=== PATIENT | male | born 1970 | race African-American/Black ===

== ENCOUNTER 2018-03-23 19:18 | Emergency (ER) | payer OTHER ==
[~2018-03-23] VITALS: Ht 190.5 cm; Wt 99.8 kg
[~2018-03-23 19:18] MED LIST: ACYCLOVIR 200200 MG PO; VALTREX1000 MG PO
[2018-03-23] MEDS ORDERED: NAPROSYN500 MG PO (19:34)
[2018-03-23] MEDS ORDERED: CORTISPORIN OTI10 M2 OTIC (19:34)
[2018-03-23] MEDS ORDERED: HYPERTENSION MED (19:41)
[2018-03-23 19:49] VITALS: BP 134/93
== END 2018-03-23 19:50 | disposition home or self-care (01) ==
LOC: ER 19:18
DX: H60.91 Unspecified otitis externa, right ear (principal); F17.210 Nicotine dependence, cigarettes, uncomplicated; I10 Essential (primary) hypertension; Z90.89 Acquired absence of other organs

== ENCOUNTER 2019-02-14 09:41 | Emergency (ER) | payer OTHER ==
[~2019-02-14] VITALS: Ht 190.5 cm; Wt 104.3 kg
[~2019-02-14 09:41] MED LIST changes: +CORTISPORIN OTI10 M2 OTIC; +HYPERTENSION MED; +NAPROSYN500 MG PO
[2019-02-14 09:43] VITALS: BP 125/80
[2019-02-14] MEDS ORDERED: AMOXICILLIN 50500 MG PO (10:03)
[2019-02-14] MEDS ORDERED: CIPRO HC OTIC S10 ML OTIC (10:05)
[2019-02-14] MEDS ORDERED: ULTRAM 50MG TAB50 MG PO (10:05)
[2019-02-14] MEDS ORDERED: MUPIROCIN15 GM TOP (10:05)
== END 2019-02-14 10:21 | disposition home or self-care (01) ==
LOC: ER 09:41
DX: H60.92 Unspecified otitis externa, left ear (principal); L01.00 Impetigo, unspecified; F17.210 Nicotine dependence, cigarettes, uncomplicated; I10 Essential (primary) hypertension; Z90.49 Acquired absence of other specified parts of digestive tract

== ENCOUNTER 2019-10-06 13:44 | Emergency (ER) | payer OTHER ==
[~2019-10-06] VITALS: Ht 188 cm; Wt 79.4 kg
[~2019-10-06 13:44] MED LIST changes: +AMOXICILLIN 50500 MG PO; +CIPRO HC OTIC S10 ML OTIC; +MUPIROCIN15 GM TOP; +ULTRAM 50MG TAB50 MG PO
[2019-10-06 16:09] LABS: URINE BILIRUBIN NEGATIVE (Negative); URINE BLOOD TRACE (Negative); URINE CLARITY CLEAR; URINE COLOR YELLOW; URINE GLUCOSE-RANDOM* NEGATIVE (Negative); URINE KETONES NEGATIVE (Negative); URINE LEUKOCYTES-REFLEX NEGATIVE (Negative); URINE NITRITE-REFLEX NEGATIVE (Negative); URINE PROTEIN (DIPSTICK) NEGATIVE (Negative); URINE UROBILINOGEN 0.2 E.U./dl (0.2-1.0)
[2019-10-06 16:38] LABS: HEMATOCRIT 41.6 % (42.0-52.0); HEMOGLOBIN 14.1 gm/dL (14.0-18.0); MCHC 33.9 g/dL (28.0-37.0); MCV 91.3 fL (80.0-100.0); PLATELET COUNT 303 thou/uL (150-400); RBC 4.56 mil/uL (4.50-6.00); RDW 13.5 % (10.5-14.5); WBC 3.3 thou/uL (4.0-11.0)
[2019-10-06 16:50] LABS: ANION GAP 9 mmol/L (7-16); BUN 13 mg/dL (7-18); CHLORIDE 109 mmol/L (98-107); CO2 25 mmol/L (21-32); CREATININE 1.4 mg/dL (0.7-1.3); GLUCOSE 69 mg/dL (74-106); SODIUM 143 mmol/L (136-145); TROPONIN-I <0.06 ng/mL (<0.06)
[2019-10-06 17:08] LABS: CALCIUM 9.4 mg/dL (8.5-10.1)
[2019-10-06 17:12] LABS: ABSOLUTE NEUTROPHILS 1.5 thou/uL (1.4-8.2)
[2019-10-06 17:13] LABS: ANISOCYTOSIS 1+
[2019-10-06 17:33] VITALS: BP 128/86
--- NOTE | 2019-10-07 07:56 | EKG ---
[address] [address] ELECTROCARDIOGRAM REPORT Name: EDITH YOUSSEF Room #: DEP [facility] [id number] Admission: 10/06/19 Attend Phys: Discharge: 10/06/19 Date of : 72 Report #: [id number] THIS REPORT FOR: //name// [facility] ED Test Date: 2019-10-06 Test Time: 15:33:45 Pat Name: EDITH YOUSSEF Department: Room: Gender: Campaign Advisor: [facility] : 1970 Requested By: Adolph Ch Order Number: [id number] MD: Dirk Hanley Measurements Intervals [place] Rate: 42 P: -75 AL: 206 QRS: 47 QRSD: 77 T: 59 QT: 442 QTc: 370 Interpretive Statements Sinus or ectopic atrial bradycardia No previous ECG available for comparison Electronically Signed On 10-07-2019 7:55:52 PRESSURE SUPERVISOR by Dirk Hanley [email or web address] <ELECTRONICALLY SIGNED> By: Dirk Hanley MD, [facility] 10/07/19 0755 [id number] Dirk Hanley MD, FACC /EPI
== END 2019-10-06 17:41 | disposition home or self-care (01) ==
LOC: ER 13:44
PROVIDERS: Emergency Medicine
DX: G89.29 Other chronic pain (principal); M54.5 Low back pain; F17.210 Nicotine dependence, cigarettes, uncomplicated; I10 Essential (primary) hypertension; Z98.890 Other specified postprocedural states

== ENCOUNTER 2019-12-06 18:17 | Inpatient (IN) | payer OTHER ==
[~2019-12-06] VITALS: Ht 193 cm; Wt 79.2 kg
[2019-12-06 18:19] VITALS: BP 110/88
[2019-12-06 23:49] LABS: HEMATOCRIT 43.7 % (42.0-52.0); HEMOGLOBIN 14.7 gm/dL (14.0-18.0); MCH 30.7 pg (26.0-34.0); MCHC 33.7 g/dL (28.0-37.0); PLATELET COUNT 311 thou/uL (150-400); RDW 13.5 % (10.5-14.5); WBC 6.3 thou/uL (4.0-11.0)
[2019-12-07] VITALS (7 sets, daily range): BP systolic 117–141; BP diastolic 74–91
[2019-12-07 00:27] LABS: CALCIUM 9.5 mg/dL (8.5-10.1); CREATININE 1.1 mg/dL (0.7-1.3); POTASSIUM 4.2 mmol/L (3.5-5.1)
[2019-12-07 01:03] LABS: ABSOLUTE NEUTROPHILS 3.5 thou/uL (1.4-8.2); PLATELET ESTIMATE NORMAL
--- NOTE | 2019-12-07 04:16 | NUR ---
PT TO UNIT AROUND 0115. ADMISSION ASSESSMENT COMPLETED WITH BETSY'S HELP. PT A&O TO PERSON AND TIME, VERY CONFUSED AND TALKING NONSENSE. ORIENTED PT TO NURSE, UNIT AND USE OF CALL LIGHT. GIVEN ONE TIME ATIVAN FOR NERVOUSNESS. PT POSSIBLE HIV AND SYPHILIS POSITIVE, GENARO REQUESTS DOOR TO BE CLOSED WHEN DISCUSSING THOSE MATTERS. FALL PRECAUTIONS IN PLACE DUE TO CONFUSION. REQUESTED A SANDWICH BUT FELL ASLEEP BEFORE IT COULD BE EATEN. GENARO (MARY BETH) LEFT FOR NIGHT BUT WILL BE BACK TOMORROW. PT SLEEPING NOW WITH CALL LIGHT IN REACH.
[2019-12-07 07:20] LABS: CALCIUM 9.3 mg/dL (8.5-10.1); CREATININE 1.1 mg/dL (0.7-1.3); POTASSIUM 3.7 mmol/L (3.5-5.1)
--- NOTE | 2019-12-07 14:14 | NUR ---
PT ADMITTED RELATED TO ENCEPHALOPATHY, POSITIVE HIV SCREENING TEST. CM REVIEWED CHART AND SPOKE WITH CARE TEAM. CM MET WITH PT AND GENARO CLINTON AT BEDSIDE THIS DAY. CM ROLE INTRODUCED. MARY BETH INDICTED SHE IS DPOA AND THAT THERE IS PAPERWORK ON THE CHART. SHE INDICATED THAT PT HAD BEEN LIVING IN A HOUSE WITH HER WITH NO STEPS TO ENTER AND NO STEPS INSIDE. SHE INIDCATED PT HAD BEEN INDEPENDENT WITH GAIT AND [facility] [employer]. SHE INDICATED THAT PT HAD BEEN AT [employer] [facility] AND THAT THEY HAD COMPLETED A MEDICAID APPLICATION AND [facility]AF SPOKEN ABOUT APPLYING FOR DISCABILITY. CM INDICATED THAT [facility] CAN CHECK STATUS OF APPLICAITON. CM TO FOLLOW INDICATED WITH NEEDS UPON DC.
--- NOTE | 2019-12-07 18:32 | EEG ---
[facility] [place] [address] ELECTROENCEPHALOGRAM Name: EDITH YOUSSEF Room #: 435-P ADM IN M.R.#: [id number] Admission: 12/06/19 Attend Phys: Jimmy Hughes MD Discharge: Date of : 72 Report #: [id number] THIS REPORT FOR: //name// CC: Jimmy Hughes [facility] unknown DATE OF SERVICE: 12/07/2019 This patient is being evaluated for altered mental status. The EEG was done by placing the electrodes by standard 10-20 system of electrode placement. Both referential and sequential montages were used for recording. Background activity in this patient's EEG is up to 9 Hz and 30 microvolts. Most of the EEG is intermixed with theta range slowing on both sides. Photic stimulation is unremarkable. No active epileptiform activity was noticed during this record. IMPRESSION: This patient's EEG is intermixed with theta range slowing on both sides. That is a nonspecific finding, which can occur with encephalopathy, effect of psychotropic medication, dementia, etc. Clinical correlation is recommended. <ELECTRONICALLY SIGNED> By: Randal Edwards MD 12/07/191831 01 12 Randal Edwards MD /nt
--- NOTE | 2019-12-07 19:55 | NUR ---
PT A&O TO SELF. CONFUSED. REQUIRED SEVERAL REORIENTAION THROUGHOUT THE DAY. S/O WAS THE BEDSIDE MOST OF THE DAY. IV INTACT IN L AC INFUSING FLUIDS W/O COMPS.CALL LIGHT W/I REACH BED ALARM ON.
--- NOTE | 2019-12-08 03:52 | NUR ---
ASSESSMENT: PT REMAIN ALERT AND ORIENT TIMES THREE, WITH BOUTS OF CONFUSION TO PLACE, TIME AND SITUATION. TAKES LOTS OF ENCOURAGEMENT. DOES TRY TO MASK HIS SYMPTOMS OF CONFUSION WITH LAUGHTER AND LIGHT HEARTED JOKES. DID NOT KNOW THE NAME OF THE HOSPITAL, THE NEXT HOLIDAY TO CELEBRATE, NOR COULD HE REMEMBER HIS RN'S NAME. S/O AT THE BEDSIDE DURING THE NIGHT. VSS, STABLE. C/O GENERALIZE PAIN AT 0355, TYLENOL GIVEN. PT DID NOT SLEEP MUCH DURING THE NIGHT. VSS, AFEBRILE. BED ALARM SET. PT REORIENT TO TIME, SITUATION AND PLACE. PT DID KNOW HIS NAME, AND HOME ADDRESS. SLOW PROGRESS TOWARDS DCF GOALS, WILL CONTINUE TO MONITOR.
[2019-12-08 04:10] VITALS: BP 137/75
--- NOTE | 2019-12-08 10:00 | NUR ---
pt confused, impulsive, calling 911, security here trying to educate on not calling 911. information to bedside nurse. here pt trying to get dressed and thinks he going some where. will cont following as needed for dc needs. sig other # [phone] [facility]. and bedside nurse still in room with pt
[2019-12-08 10:07] VITALS: BP 125/77
--- NOTE | 2019-12-08 10:38 | NUR ---
PT CARE ASSUMED AT 0700. A&Ox4 WITH PARTIAL CONFUSION. PT KEEPS CALLING HIS GIRLFRIEND AT WORK AND WANTS TO LEAVE. HE CALLED 911 AND TOLD THEM THAT WE ARE HOLDING HIM AGAINST HIS WILL. SECURITY WAS CALLED TO STAY WITH PT UNTIL EDATION ORDERED. DR. MARRERO HAS ORDERED A ONE TIME HALDOL DOSE WITH VERBAL ORDERS TO USE WRIST RESTRAINS IF NEEDED AND SITTER IF NEEDED PER RN JUDGEMENT CALL. THERE IS A MISS. NOTE THAT THE GIRLFRIEND CANNOT AMA THE PT DUE TO PT BEING A HARM TO HIMSELF. PT RESULTS ARE PENDING FOR TURSHEAR SYPHILIS OR DEMENTIA CORRELATING TO HIS PENDING HIV DIAGNOSIS.
[2019-12-08 15:34] VITALS: BP 128/84
[2019-12-08 19:10] VITALS: BP 126/85
[2019-12-08 19:11] LABS: ANA INTERPRETATION Negative (())
--- NOTE | 2019-12-08 22:35 | HC ---
[facility] [place] [address] CONSULTATION Name: EDITH YOUSSEF Room #: 435-P ADM IN M.R.#: [id number] Admission: 12/06/19 Attend Phys: Ramesh Bingham MD Discharge: Date of : 72 Report #: [id number] THIS REPORT FOR: cc: [facility] - Clinic physician unknown [facility] - Clinic physician unknown Jonathan Baptiste MD ~ CC: Jimmy Hughes [facility] unknown DATE OF SERVICE: 12/07/2019 INFECTIOUS DISEASE CONSULTATION REASON FOR CONSULTATION: I was asked to evaluate concerning suspected HIV encephalopathy. HISTORY OF PRESENT ILLNESS: A 49-year-old who was recently hospitalized at [facility] on 11/30/2019 with a 4-week history of progressive neurologic decline. While there, the initial workup was started. The patient and his fiancee left A and presented themselves to the Emergency Room at [facility]. I am still unclear as to the reason that they left the hospital. The patient has been incarcerated multiple times in his life for extended periods. He has a significant other of approximately 15 years. During his hospital stay at [facility], he was diagnosed with HIV serologic positive without confirmation yet. Also, had syphilis antibody positive without positive RPR. He had brain imaging showing extensive demyelinating type lesions on MRI scan. A spinal tap was unremarkable. He did have mild elevation in the protein of 56. Further workup was yet pending. There was evidence for PCR with negative enterovirus, HSV, CMV, VZV, and HPV. I did not see evidence of Candice-Ibarra virus or JIM virus. The patient was unable to give any further details. Discussion with his significant other states that he was then presented in August and upon release, was acting normally. Very active. Works in a warehouse. Over the last month, he has been more lethargic. He has had poor appetite. More confusion and anxiety. Culture frequently during the day, which is unusual for him. He does drink significant amount of alcohol. He reports no intravenous drug use. Does smoke marijuana. Unclear, if he is bisexual. No tuberculosis history or recent travel history. Did grow up in [place] and [facility]. ALLERGIES: None known. MEDICATIONS: As noted on his MAR. [facility] [address] [place] [address] CONSULTATION Name: EDITH YOUSSEF Room #: 435-P [facility] IN [facility].#: [id number] Admission: 12/06/19 Attend Phys: Ramesh Bingham MD Discharge: Date of : 72 Report #: [id number] PAST MEDICAL HISTORY: Depression, alcohol abuse, hypertension, herniorrhaphy, appendectomy, was report of an enlarged heart. FAMILY HISTORY: Dementia in his brother and his early 50s. SOCIAL HISTORY: As noted above. Does smoke cigarettes. REVIEW OF SYSTEMS: A 14-point review was negative other than what has been described above. Most notably, no headache or visual changes. He has had no movement disorder noted. PHYSICAL EXAMINATION: VITAL SIGNS: He is afebrile and hemodynamically stable. He was ambulatory. He was a bit lethargic. He just tells me they wanted to go to sleep. He was able to follow commands and cooperate with the examination. SKIN: With multiple tattoos. Had a fine erythematous rash to his scalp and face. No palpable adenopathy. HEENT: Eyes, without scleral icterus. Pupils are equal, round, and reactive to light and accommodation. Mouth without mucositis. NECK: Supple. No thyromegaly or mass. LUNGS: Clear to auscultation. HEART: Regular, without murmur, gallop, or rub. ABDOMEN: Soft and nontender with no hepatosplenomegaly or mass. GENITOURINARY: External genitalia without lesion or mass. RECTAL: Not performed. EXTREMITIES: Without clubbing, cyanosis, or edema. Cranial nerves were intact. NEUROLOGIC: Otherwise, nonfocal. PSYCHIATRIC: Mood was depressed. LABORATORY STUDIES: Reviewed. MRI scan reviewed noting nonspecific confluent periventricular and subcortical white matter hyperintensities. IMPRESSION: A 49-year-old with acute encephalopathy less than 4 weeks of duration in the setting of positive HIV serology and diffuse changes on MRI scan. He has had partial workup at [facility]. The patient left with his ana AMA from that institution and presented to the Emergency Room at [facility]. I highly suspect his HIV is a true positive, but will need to have this confirmed. He does have evidence of syphilis, although his RPR was negative. He would be concerned about PML versus HIV encephalopathy versus acute demyelinating process of postinfectious nature. MS SLE toxoplasma lymphoma seems less likely. RECOMMENDATIONS: We will obtain reports from [facility] to confirm their workup. Repeat CSF examination for JIM virus, Candice-Ibarra virus, PCR and await the studies for syphilis. Obtain CD4 count and confirm his HIV status. If no improvement or diagnosis established with current workup, may need to [facility] [address] [place] [address] CONSULTATION Name: EDITH YOUSSEF Room #: 481-P ADM IN [facility].#: [id number] Admission: 12/06/19 Attend Phys: Ramesh Bingham MD Discharge: Date of : 72 Report #: [id number] pursue a brain biopsy. We will hold off on this at this point until further information. Case was discussed with his fiancee at the bedside. <ELECTRONICALLY SIGNED> By: Jonathan Baptiste MD 12/08/19 2235 [id number] [id number] Jonathan Baptiste MD /nt
--- NOTE | 2019-12-09 02:47 | NUR ---
ASSUMED CARE FROM DAY SHIFT PT IV HALF OUT OF ARM AND LEAKING , NEW IV PLACED IP LEFT UPPER ARM , PT CONFUSED TO SITUATION, GIRLFREIND AT BEDSIDE ASSITING PT. ASSESSMENT COMPLETED, IV FLUIDS INFUSING WELL. PT RESTLESS, CALL PLACED TO BG SUPERVISOR OF INSTRUCTION ORDER RECIEVED FOR HADOL IV TIMES ONE. PT LESS RESTLESS BUT REMAINS AWAKE AND CONFUSED. BED ALARM ON FOR SAFETY.
[2019-12-09 08:07] VITALS: BP 141/99
[2019-12-09 11:42] LABS: HEMATOCRIT 38.8 % (42.0-52.0); HEMOGLOBIN 13.1 gm/dL (14.0-18.0); MCH 30.5 pg (26.0-34.0); MCHC 33.7 g/dL (28.0-37.0); MCV 90.4 fL (80.0-100.0); RBC 4.29 mil/uL (4.50-6.00); RDW 13.1 % (10.5-14.5); WBC 4.5 thou/uL (4.0-11.0)
[2019-12-09 11:45] LABS: INR 1.1; PROTIME 11.5 Seconds (9.3-11.4)
[2019-12-09 14:36] LABS: CSF RBC 1587 /mm3
[2019-12-09 14:37] LABS: CSF CLARITY HAZY; CSF COLOR LIGHT PINK; CSF GLUCOSE 59 mg/dL (40-70); CSF PROTEIN 70 mg/dL (15-45); VOLUME 13 ml
[2019-12-09 15:25] LABS: CSF EOSINOPHILS 0 %; CSF LYMPHOCYTES 69 %; CSF POLYS 3 %
[2019-12-09 15:28] LABS: CSF WBC 18 /mm3 (0-10)
[2019-12-09 16:10] VITALS: BP 120/77
[2019-12-09 17:10] LABS: ANTI-VCA/IgM <36.0 U/mL (0.0-35.9)
[2019-12-09 19:15] VITALS: BP 125/82
--- NOTE | 2019-12-09 20:14 | NUR ---
PT CARE ASSUMED AT 0700. A&Ox1 TO SELF. PT HAD A LUMBAR PUNTURE TODAY AND IS RESTING IN HIS ROOM. HE HAS STATED HE HAS A SLIGHT HEADACHE. THE HAS BEEN UPDATED OVER THE PHONE AND IN PERSON. GAVE PT A SHOWER. PT URINATED ONCE ON THE FLOOR TODAY THE REST OF THE DAY HE USED THE URINAL. WRIST RESTRAINTS AND SITTER CAN BE INITIATED PER RN DISCRETION PER DR. MARRERO VERBAL ORDERS. HALDOL IM PRN ON BOARD. PT HAS A R. WRIST IN PLACE THAT IS PATENT WITH NO REDNESS OR EDEMA. FALL PROTOCOLL IN PLACE. CALL LIGHT IN REACH. PT IS A DAILY WEIGHT DUE TO HIS EXTREME WEIGHT LOSS OVER THE LAST TWO MONTHS. PT HAS FLUIDS INFUSING.
--- NOTE | 2019-12-09 22:22 | NUR ---
1909 ASSUM,ED CARE OF PT AFTER BEDSIDE REPORT FAMILY AT BEDSIDE WITH PT NO COMPLAINTS AT THIS TIME 2199 ASSESSMENT COMPLETED, SEE ASSESSMENT, PT RESTING IN BED ORIENTED TO PERSON AND PLACE ONLY, APPEARS ANXIOUS, IV PATENT, AND FALL PRECAUTIONS IN PLACE, WILL CONTINUE WITH HOURLY ROUNDING
[2019-12-10 03:09] LABS: SYPHILIS AB Reactive (Non Reactive)
[2019-12-10 03:15] VITALS: BP 147/83
[2019-12-10 09:11] VITALS: BP 145/74
--- NOTE | 2019-12-10 17:42 | NUR ---
PATIENT HAS STAYED IN ROOM MOST OF THE DAY. HE IS ALERT ORIENTED TO SELF. HE HAS BEEN NOTED AT TIMES TO BE IMPULSIVE AND REFUSES TO FOLLWO SIMPLE INSTRUCTION. REFUSED IV NS THIS PM STATING HE DOES NOT IT. DIFFICULT TO REDIRECT. HE IS ALERT ORIENTED TO SELF. FIANCE HERE TO GIVE HIM A SHOWER. HE IS NOW SITTING ON THE SIDE OF THE BED AND REFUSES TO LIE DOWN. WILL CONT WITH PLAN OF CARE.
[2019-12-10 18:45] VITALS: BP 132/74
--- NOTE | 2019-12-10 20:12 | NUR ---
1900 ASSUMED CARE OF PT AFTER BEDSIDE REPORT. 1999 ASSESSMENT COMPLETED, PT REFUSING VITALS AND SCDS AT THIS TIME, FALL PRECAUTIONS IN PLACE, PT APPEARS LESS ANXIOUS THAN PREVIOUS SHIFT, AND IS OTHERWISE COOPERATIVE, PT ORIENTED TO PERSON ONLY, WILL CONTINUE WITH HOURLY ROUNDING.
[2019-12-11 05:30] VITALS: BP 154/103
[2019-12-11 08:00] VITALS: BP 132/84
--- NOTE | 2019-12-11 15:18 | NUR ---
PATIENT HAS BEEN CALM THROUGH THE DAY. NOW SLEEPING. RESPIRATIONS ARE NON LABORED. PLEASANT WITH CARE. CONFUSED HOWEVER. ALERT ONLY TO SELF. DID COMPLAIN PAIN. IV TO RIGHT HAND REMAINS PATENT. DISCUSSED DISEASE PROCESS WITH FIANCE AND PATIENT AND ANSWERED QUESTIONS. WILL CONT WITH PLAN OF CARE.
[2019-12-11 17:04] VITALS: BP 124/82
[2019-12-11 20:14] VITALS: BP 134/88
[2019-12-12 00:09] LABS: CD3 % 65.9 % (57.5-86.2); CD4 % 4.2 % (30.8-58.5); CD4:CD8 0.07 (0.92-3.72); CD8 % 62.1 % (12.0-35.5)
--- NOTE | 2019-12-12 02:15 | NUR ---
PT SITTING UP IN BED AT START OF SHIFT.PT'S IV ON HIS R HAND INFILTRATED,NEW ONE OBTAINED ON HIS LFA BY IV TEAM.PT WAS NOT ABLE TO SWALLOW HIS MEDS AT HS,MEDS DISCARDED.PT WAS OBSERVED RETAINING SPUTUM IN HIS MOUTH AFTER COUGHING,SUCTION SET UP IN HIS ROOM TO ASSIST WITH THAT.PT HAS BEEN INCONT OF BLADDER A COUPLE OF TIMES THIS SHIFT,PERICARE DONE WITH EACH INCONT.PT ALERT WITH CONFUSION AND FORGETFULNESS.PT CONT ON IVF ORDERED.PT RESTING ON HIS BED AT THIS TIME.FALL PRECAUTIONS IN PLACE,CALL LIGHT WITHIN REACH.
[2019-12-12 03:20] VITALS: BP 143/94
[2019-12-12 07:40] VITALS: BP 129/87
[2019-12-12 16:30] VITALS: BP 146/96
--- NOTE | 2019-12-12 18:21 | NUR ---
PT ASSESSED AT START OF SHIFT. PT GIVEN SOME IV HALDOL DURING THE NOC AND HE IS SLEEPING RESTFULLY. SPEECH HERE THIS AM BUT PT NOT ABLE TO COOPERATE ENOUGH W/ SWALLOW EVAL. HE DOES HAVE CONJESTED LOOSE COUGH AND USING YANQUER NEEDED. PT HAS BEEN AWAKE OFF AND ON AND VERY CALM. NOT SAFE TO GIVEN ORAL MED OR FOOD. DR. MARRERO NOTIFIED. SIG OTHER UPDATED W/ PT CONDITION AND SHE WILL COME OVER AFTER WORK.
[2019-12-12 20:40] VITALS: BP 138/89
--- NOTE | 2019-12-13 03:14 | NUR ---
PT WITH A LOOSE COUGH,ASSISTED WITH SUCTIONING NEEDED.HS MEDS NOT GIVEN DUE TO PT AT RISK FOR ASPIRATION.HOB ELEVATED WHILE PT IN BED.PT INCONT OF URINE,PERICARE DONE WITH EACH INCONTINENCE.PT ABLE TO MOVE SELF WHILE IN BED.PT NEEDS CONSTANT REMINDER TO USE CALL LIGHT FOR ASSISTANCE.PT CONT ON IVF AND IV ABX ORDERED.PT RESTING ON HIS BED AT THIS TIME.FALL PRECAUTIONS IN PLACE,CALL LIGHT WITHIN REACH.
[2019-12-13 07:38] VITALS: BP 144/91
--- NOTE | 2019-12-13 14:44 | NUR ---
PT SEEN BY ST AND THEY PUT PT ON A MECHSFT DIET WITH NECTAR THICK LIQUID. CARE TEAM INDICATING THAT PT WILL LIKELY NEED SOME SORT OF POST ACUTE CARE STAY UPON DC. PT IS MEDCIAID PENDING. CM TO FOLLOW INDICATED WITH DC PLANNING.
--- NOTE | 2019-12-13 15:08 | PATH ---
[facility] [address] [place] [address] PATHOLOGY RPT PROCEDURE Name: EDITH YOUSSEF Room #: 435-P ADM IN M.R.#: [id number] Admission: 12/06/19 Date of : 72 Discharge: Report #: [id number] Path Case #: [id number] Note [facility] Accession Number: [id number] TESTS RESULT FLAG UNITS REF RANGE LAB Clinician Provided Cytology Information No. of containers..01 Other (Miscellaneous) Source: CSF DIAGNOSIS: CSF NEGATIVE FOR MALIGNANT CELLS. LYMPHOCYTES AND RARE MACROPHAGES PRESENT. NO VIRAL INCLUSIONS OR PARASITIC ORGANISMS PRESENT. Pathologist ICD10: 02 G93.40 Signed out by: Rashmi Gutierrez MD, Pathologist NPI- [id number] Performed by: Bianca Degroot, Contract Engineer ([facility]) Gross description: 01 2ML, PALE PINK, 1 TP /LCS 12/12/2019 1234 Local FLAG LEGEND: L-Low Normal,H-High Normal,LL-Alert Low,HH-Alert High <-Panic Low,>-Panic High,A-Abnormal,AA-Critical Abnormal Performed at: [address] [place] [address] Leonides Ayers MD, [address] [address] Rashmi Gutierrez MD, Specimen Comment: A courtesy copy of this report has been sent to [phone] Specimen Comment: Report sent to Performed at: [address], [place], [place] [id number] MD Leonides Ayers MD Phone: [phone]
[2019-12-13 19:18] VITALS: BP 144/91
--- NOTE | 2019-12-13 19:20 | NUR ---
PT CARE ASSUMED AT 0700. A&Ox1 TO SELF. IV IS PATENT WITH NO REDNESS OR EDEMA. FLUIDS INFUSING ANTIBIOTICS GIVEN. TAKES MEDS CRUSHED WITH PUDDING. NECKTAR THICK FLUIDS. FALL RISK PROTOCOLL IN PLACE. AT BED SIDE. HAS GIVEN PT HIS SHOWER. DISCONNECTED PT FROM IV WHILE IT WAS INFUSING WITH HIS ANTIBIOTICS AND CALLED OUT AFTER ABOUT 50CC OF HIS HAD DRIPPED ALL OVER THE FLOOR. CALL LIGHT IN REACH.
[2019-12-13 19:35] VITALS: BP 138/82
[2019-12-14] VITALS (7 sets, daily range): BP systolic 131–145; BP diastolic 56–99
--- NOTE | 2019-12-14 00:53 | NUR ---
PT'S SIG OTHER HERE AT HIS BEDSIDE FEEDING HIM AT THE START OF SHIFT.SIG OTHER STATED THAT SHE GAVE HIM A SHOWER.PT ALERT TO SELF,CONFUSED AND FORGETFUL.PT CONT ON IVF AND IV ABX ORDERED.PT ON SWALLOW PRECAUTION.INCONT OF URINE,PERICARE WITH EACH INCONT.PT RESTING ON HIS BED AT THIS TIME.FALL PRECAUTIONS IN PLACE,CALL LIGHT WITHIN REACH.
[2019-12-14 11:54] LABS: BASOPHILS 0.2 % (0.0-2.0); EOSINOPHILS 1.2 % (0.0-3.0); HEMATOCRIT 38.9 % (42.0-52.0); HEMOGLOBIN 13.3 gm/dL (14.0-18.0); LYMPHOCYTES 9.6 % (24.0-44.0); MCH 30.7 pg (26.0-34.0); MCHC 34.1 g/dL (28.0-37.0); MCV 89.9 fL (80.0-100.0); MONOCYTES 11.8 % (1.0-8.0); PLATELET COUNT 379 thou/uL (150-400); POLYS 77.2 % (36.0-66.0); RBC 4.32 mil/uL (4.50-6.00); RDW 12.9 % (10.5-14.5); WBC 7.8 thou/uL (4.0-11.0)
[2019-12-14 12:34] LABS: ALBUMIN 3.2 g/dL (3.4-5.0); CALCIUM 9.7 mg/dL (8.5-10.1); CREATININE 0.8 mg/dL (0.7-1.3); MAGNESIUM 1.6 mg/dL (1.8-2.4); PHOSPHORUS 3.7 mg/dL (2.5-4.9); POTASSIUM 3.3 mmol/L (3.5-5.1); TOTAL BILIRUBIN 0.6 mg/dL (<0.1-1.0); TOTAL PROTEIN 8.4 g/dL (6.4-8.2)
[2019-12-14 13:10] LABS: CSF VDRL Non Reactive (Non Rea:<1:1)
[2019-12-14 16:15] LABS: HEMATOCRIT 38.6 % (42.0-52.0); HEMOGLOBIN 13.1 gm/dL (14.0-18.0); MCH 30.4 pg (26.0-34.0); MCHC 33.8 g/dL (28.0-37.0); MCV 89.9 fL (80.0-100.0); RBC 4.3 mil/uL (4.50-6.00); RDW 13.1 % (10.5-14.5); WBC 7.8 thou/uL (4.0-11.0)
[2019-12-14 16:29] LABS: CALCIUM 9.4 mg/dL (8.5-10.1); CREATININE 0.8 mg/dL (0.7-1.3); POTASSIUM 3.6 mmol/L (3.5-5.1)
[2019-12-14 16:33] LABS: ALBUMIN 3.1 g/dL (3.4-5.0); TOTAL BILIRUBIN 0.6 mg/dL (<0.1-1.0); TOTAL PROTEIN 8.3 g/dL (6.4-8.2)
[2019-12-14 16:33] LABS: BE(vivo) -2.9 mmol/L (-2 to +3); HCO3 19.8 mmol/L (22.0-26.0); PCO2 29.1 mmHg (35.0-45.0); PO2 79.2 mmHg (80.0-100.0); pH 7.451 (7.360-7.450); sO2 96.4 % (92.0-98.0)
--- NOTE | 2019-12-14 19:16 | NUR ---
ASSESSMENTS AND INTERVENTIONS DOCCUMENTED. PATIENT ARRIVED TO UNIT AT 1815. PATIENT SETTLED IN. PATIENT CONFUSED AND UNABLE TO FOLLOW COMMANDS. NIH STROKE SCALE INTITATED DUE TO RAPID DECREASED LOC. POC IS TO GO TO MRI THIS EVENING.
[2019-12-14 20:09] LABS: HIV-1 BY PCR 8928210 (())
[2019-12-15] VITALS (25 sets, daily range): BP systolic 122–141; BP diastolic 82–98
--- NOTE | 2019-12-15 00:10 | NUR ---
PICC PROCEDURE. PATIENT IS NOT ABLE TO UNDERSTAND. ,MEDICAL NECESSITY OBTAINED BY UNIT RN'S FROM DR. SULTANA. COMPUTER ORDER VERIFIED AND TIME OUT COMPLETED WITH PATIENT'S NURSE AND PATT RN. TRIPLE LUMEN PICC PLACED TO RUE BASILIC VEIN PER PICC PLACEMENT PROTOCOL. PATIENT TOLERATED WELL. NO COMPLICATIONS. PICC TRIMMED TO 41CM. EXTERNAL =0CM. PICC TIP CONFIRMED DISTAL SVC PER CHEST XRAY. PATIENT'S RN AND PATT RN NOTIFIED THAT PICC IS OKAY TO USE.
--- NOTE | 2019-12-15 07:24 | NUR ---
SEE RSVP Law FOR COMPLETE ASSESSMENT. PT ORIENTED TO SELF. CAN VERBALIZE BASIC CARE NEEDS. PT LETHARGIC, AWAKENS EASILY. DELAYED IN RESPONSES BOTH VERBALLY AND MOTOR SKILLS. DENIES ANY PAIN. IN CONVERSANT WHEN AWAKE, BUT CONFUSED, AND STREAM OF THOUGHTS. CT OF CHEST DONE,LS-COARSE. NO SOA, REMAINS ON RA. MONITOR SHOWS HR 40-50'S. ASYMPTOMATIC SBP 120-140'S RANGE. TEMP COOL. CONT PLAN OF CARE. CONT TOWARDS GOALS NEURO SEEMS UNCHANGED FROM BASELINE.
--- NOTE | 2019-12-15 07:30 | NUR ---
PATIENT TRANSFER TO ICU. WILL NEED NEW ORDERS WHEN MEDICALLY APPROPRIATE FOR OT.
--- NOTE | 2019-12-15 08:12 | NUR ---
Pt TRANSFERRED TO ICU. WILL PLACE ON HOLD AND AWAIT NEW ORDERS WHEN Pt IS ABLE TO PARTICIPATE WITH THERAPY
[2019-12-15 09:11] LABS: HEPATITIS C VIRUS AB 0.4 (0.0-0.9)
--- NOTE | 2019-12-15 15:36 | NUR ---
NEURO SEEN PT THIS AM. TAKEN DOWN FOR MRI OF HEAD WITH TRANSPORT. EEG DONE THIS AFTERNOON. PT IS CONFUSED. EYES ARE AFFECTED BY LIGHT. OPENS EYES WITH LIGHTS DIM. PUPILS 3 AND SLUGISH. ORAL CARE DONE AND HE SAID THAT IS ENOUGH WITH SPEECH. LUNGS ARE CLEAR TO DIMINISHED. ON ROOM AIR. SCDS BILATERAL. RIGHT UPPER ARM PICC LINE PATENT AND WORKING . WILL CONTINUE TO MONITOR AND ASSESS PER NURSING. PROGRESS TOWARDS GOALS
[2019-12-16] VITALS (24 sets, daily range): BP systolic 122–146; BP diastolic 73–97
--- NOTE | 2019-12-16 07:10 | NUR ---
ASSUME CARE 1900. PT/VITALS STABLE. DENIES ANY PAIN. MODERATELY TOLERATES ACTIVITY. ASSESSMENT CHARTED. PROGRESSING WELL WITH POC. PT IS AFIB ON MONITOR AND HR RUNS BETWEEN LOW 100s AND 140s BUT DOES NOT SUSTAIN. PT ON PT CARDIZEM 60MG. SWALLOWS WITH NO DIFFICULTY. ADEQUATE URINE OUTPUT NOTED. PLAN IS TO MANAGE AFIB AND HR. POSSIBILITY OF DISCHARGING TO A LESS CRITICAL UNIT (CCU) TODAY. WILL CONTINUE TO MONITOR AND FOLLOW WITH POC
--- NOTE | 2019-12-16 07:16 | NUR ---
ASSUME CARE 1900. PT/VITALS STABLE. PT IS A/O TO PERSON ONLY AND DOES NOT FOLLOW COMMANDS APPROPRIATELY. ASSESSMENT CHARTED. POOR PROGRESS TO POC. PLAN IS TO START PATIENT ON ANTIRETROVIRAL DRUGS AND CONTINUE WITH PCN Jo Ann Ni. NO DISTRESS NOTED THROUGH THE NIGHT. SLEEP OR THE MOST PART BUT WOULD AWAKE TP VERBAL STIMULI OR TOUCH. WILL CONTINUE TO MONITOR AND FOLLOW WITH POC
--- NOTE | 2019-12-16 09:12 | NUR ---
chart review, report from bedside nurse. pt in bed with eyes closed. letting pt rest. was passed on that jessika kevin to speak with infectious control MD (ID). cm tried calling herberth rosen, mail box was full and unable to leave message. not anticipated to dc over the weekend. will cont following as needed for dc needs.
[2019-12-16 11:21] LABS: ABSOLUTE NEUTROPHILS 9.9 thou/uL (1.4-8.2); BASOPHILS 0.2 % (0.0-2.0); EOSINOPHILS 0.2 % (0.0-3.0); HEMATOCRIT 40.3 % (42.0-52.0); HEMOGLOBIN 13.6 gm/dL (14.0-18.0); LYMPHOCYTES 7.4 % (24.0-44.0); MCH 30.1 pg (26.0-34.0); MCHC 33.7 g/dL (28.0-37.0); MCV 89.2 fL (80.0-100.0); MONOCYTES 9.5 % (1.0-8.0); PLATELET COUNT 435 thou/uL (150-400); POLYS 82.7 % (36.0-66.0); RBC 4.51 mil/uL (4.50-6.00); RDW 12.8 % (10.5-14.5); WBC 11.9 thou/uL (4.0-11.0)
[2019-12-16 11:36] LABS: ALBUMIN 2.8 g/dL (3.4-5.0); CALCIUM 9.1 mg/dL (8.5-10.1); CREATININE 0.8 mg/dL (0.7-1.3); POTASSIUM 3.6 mmol/L (3.5-5.1); TOTAL BILIRUBIN 0.6 mg/dL (<0.1-1.0); TOTAL PROTEIN 8.4 g/dL (6.4-8.2)
[2019-12-16 11:41] LABS: INR 1.2; PROTIME 12.7 Seconds (9.3-11.4)
[2019-12-16 11:49] LABS: MAGNESIUM 1.6 mg/dL (1.8-2.4)
--- NOTE | 2019-12-16 15:30 | NUR ---
PT IS AWAKE AT TIMES. BUT NON RESPONSIVE TO COMMANDS. LUNGS ARE CLEAR TO DIMINISHED. ON ROOM AIR OXYGEN SATURATION IS 97 PERCENT. BLOOD PRESSURE IS STABLE. STARTED TUBE FEEDING TODAY. INSERTED NG TUBE IN PLACE FOR FEEDING. ABDOMEN IS SOFT. EDOUARD CATHETER IN PLACE. SCDS IN PLACE. TURN Q2 HOURS. FOR NURSING CARE AT THIS TIME LABS DRAWN TODAY. WILL CONTINUE TO ASSESS AND MONITOR PER NURSING
[2019-12-17] VITALS (24 sets, daily range): BP systolic 119–142; BP diastolic 84–103
[2019-12-17 00:53] LABS: BE(vivo) -3.6 mmol/L (-2 to +3); HCO3 17.5 mmol/L (22.0-26.0); PO2 113.6 mmHg (80.0-100.0); pH 7.496 (7.360-7.450); sO2 98.5 % (92.0-98.0)
[2019-12-17 01:00] LABS: PCO2 23.2 mmHg (35.0-45.0)
--- NOTE | 2019-12-17 19:15 | NUR ---
Pt has dozed intermittently. Pt has purposeful movement but does not seem to follow comands/requests. Wrists restrained to prevent accidental removal of NG tube. Makes attempt to respond verbally but speech difficult to understand. Congested cough. Tolerating tube feedings started this morning. Significant other by today or visit. Continue to work toward plan of care. Report given to RN assuming care.
--- NOTE | 2019-12-17 20:52 | NUR ---
VASCULAR ACCESS TEAM CALLED TO ICU, CXR FROM EARLIER TODAY SHOWS PICC FLIPPED ACROSS MIDLINE. DRG REMOVED AND POWER FLUSHED ALL 3 PORTS. STAT CXR ORDERED, PICC NOW AT [facility]. PICC RELEASED FOR IMMEDIATE USE TO [facility] YOU[facility]BLOOD
--- NOTE | 2019-12-17 21:38 | NUR ---
PT AGITATED, HAVING FRUSTRATED CONVERSATIONS WITH PEOPLE NOT PHYSICALLY PRESENT IN THE ROOM. REASSURANCE AND REORIENTATION PROVIDED. PT REMAINS CONFUSED AND UNABLE TO UNDERSTAND WHAT NURSE IS TELLING HIM. PT CUSSING AND BECOMING MORE FRUSTRATED IN HIS CONVERSATIONS. PRN HALDOL GIVEN. WILL CONTINUE TO MONITOR. REMAINS IN BILATERAL SOFT WRIST RESTRAINTS FOR PULLING AT LINES.
[2019-12-18] VITALS (23 sets, daily range): BP systolic 127–147; BP diastolic 87–102
--- NOTE | 2019-12-18 03:56 | NUR ---
ASSUMED PT CARE AROUND 1900. ORIENTED TO SELF ONLY. PT IS VERY CONFUSED AND CAN BE RESTLESS AT TIMES. PT WAS MORE CALM AFTER HE WAS GIVEN HALDOL. PT WAS AWAKE MOST OF THE NIGHT, BUT IS RESTING QUIETLY AT THIS TIME. HE WAS REPOSITIONED TO PREVENT SKIN BREAKDOWN. REMAINS IN BILATERAL SOFT WRIST RESTRAINTS HE CAN BE IMPULSIVE AND TRIES TO PULL AT LINES AND NGT WHEN AWAKE. NGT WITH TF, RATE INCREASED SLOWLY ORDERED. MINIMAL RESIDUALS SO FAR THIS SHIFT. FALL PRECAUTIONS IN PLACE. PROGRESSING SLOWLY TOWARD POC GOALS. WILL CONTINUE TO MONITOR FURTHER.
[2019-12-18 05:34] LABS: HEMATOCRIT 39.7 % (42.0-52.0); HEMOGLOBIN 13.5 gm/dL (14.0-18.0); MCH 30.7 pg (26.0-34.0); MCV 90.4 fL (80.0-100.0); PLATELET COUNT 446 thou/uL (150-400); RBC 4.39 mil/uL (4.50-6.00); RDW 12.8 % (10.5-14.5); WBC 5.9 thou/uL (4.0-11.0)
[2019-12-18 05:57] LABS: CALCIUM 9.7 mg/dL (8.5-10.1); CREATININE 0.8 mg/dL (0.7-1.3); MAGNESIUM 1.8 mg/dL (1.8-2.4); PHOSPHORUS 3.7 mg/dL (2.5-4.9); POTASSIUM 3.7 mmol/L (3.5-5.1)
[2019-12-18 10:22] LABS: ABSOLUTE NEUTROPHILS 3.7 thou/uL (1.4-8.2); ANISOCYTOSIS SLIGHT
--- NOTE | 2019-12-18 13:59 | NUR ---
0700 report received see assessment. continuing with poc, updated s/o about restraints and poc all questions and concerns were answered by dr mcgarry. pt pulled ngt out accidentally while s/o here she released restraints. she was warned prior by nursing staff and dr mcgarry that pt needs to remaiin in all the time to prevent any injury or accidents. cxr ordered for placement. will continue to moniter.
--- NOTE | 2019-12-18 19:16 | NUR ---
1900 REPORTED OFF TO PM RN.
[2019-12-19] VITALS (24 sets, daily range): BP systolic 113–142; BP diastolic 81–101
--- NOTE | 2019-12-19 03:36 | NUR ---
ASSUMED CARE OF PATIENT AT 1900. VSS, AFEBRILE. VERY CONFUSED. UNABLE TO ANSWER ORIENTATION QUESTIONS. PULLING AT RESTRAINTS, ATTEMPING TO REMOVE NG TUBE. TUBE FEEDING RESUMED, TITRATED UP TOWARDS GOAL. TOLERATING WELL. ONE DOSE OF HALDOL GIVEN FOR EXTREME AGITATION. NOT PROGRESSING TOWARDS POC GOALS.
[2019-12-19 06:04] LABS: CALCIUM 9.7 mg/dL (8.5-10.1); CREATININE 0.7 mg/dL (0.7-1.3); MAGNESIUM 2.1 mg/dL (1.8-2.4); PHOSPHORUS 3.7 mg/dL (2.5-4.9); POTASSIUM 3.9 mmol/L (3.5-5.1)
--- NOTE | 2019-12-19 12:01 | NUR ---
bedside nurse had question about dpoa, cm passed on question to QC. cm received message fro pt mom liv requesting call back # [phone] or [phone]. bedside nurse spoke with pt mom early this morning. pt did state that his mom and herberth don't always get along per bedside nurse. pt ok with talking with his mom. cm spoke with liv via phone call, asked her to verify his and she did. education that i would not be able to share able medical information, should have pt or crystal add to list of contacts. " i understand. i am on disability and get my check on thursday, i am have family drive me up there i am going to the court to get dpoa and then will be up there to speak with my boy and the doctors i was told that she has life insurance out on my boy. i need to know why he is so sick. i was the one who told her to take him to hospital, i knew he was not right. she a triple thanks for calling be back"/liv. information passed on to bedside nurse and qc. will cont following as needed for dc needs.
--- NOTE | 2019-12-19 18:09 | NUR ---
PT AWAKE OFF AND ON THIS SHIFT. ORIENTED TO SELF. INTERMITTENTLY CONVERSATIONAL THROUGHOUT SHIFT. PATIENT FOLLOWS SIMPLE COMMANDS AT TIMES, OTHER TIMES HE IS CONFUSED ABOUT WORDS OR INSTRUCTIONS. REMAINS IN RESTRAINTS THIS SHIFT, WILL PULL AT NG TUBE, EDOUARD AND LINES WHEN NOT RESTRAINED. DOES NOT REORIENT WHEN ATTEMPTING TO DO SO. EDOUARD REMAINS PATENT AND SECURED. PATIENT DENIES PAIN THIS SHIFT. BEGAN WATCHING TV LATER IN SHIFT AND ABLE TO RECOGNIZE KELLI DOYLE ON TV. NG TUBE REMAINS SECURED IN PLACE WITH MINIMAL RESIDUAL NOTED. FALL PRECAUTIONS IN PLACE.
--- NOTE | 2019-12-19 19:36 | NUR ---
Received report from offgoing RN (Taniya) and assumed patient care. Reviewed labs and orders. Patient is AAOx1 (Self) and is very talkative at this time. Receptive and expressive aphasia is noticed. Patient reoriented to situation.
[2019-12-20] VITALS (23 sets, daily range): BP systolic 116–145; BP diastolic 77–102
[2019-12-20 04:34] LABS: CALCIUM 9.7 mg/dL (8.5-10.1); CREATININE 0.8 mg/dL (0.7-1.3); POTASSIUM 4.3 mmol/L (3.5-5.1)
--- NOTE | 2019-12-20 15:47 | NUR ---
Assumed care at 0700. PT appeared drowsy and fell asleep during initial assessment. VSS. Dr. Kim rounded on PT and stated he was okay with transfer to [facility]. Dr. Campbell notified and put in orders to transfer PT to [facility]. Speech came to assess PT and put him on a mechanical soft diet. Dr. Campbell notified. Provider dc'd tube feeds, NG tube, and restraints at 1400. Restraints were taken off at 1408. PT has been cooperative and mentation appears improved as PT is more alert. High fall risk precautions are in place. Call light is within reach. Nurse will continue to monitor.
--- NOTE | 2019-12-20 21:23 | NUR ---
Assumed care at 1900. Pt resting well with no complaints. Dr. Baptiste to bedside at 2100 to see patient. Pt opens his eyes and attempts to answer questions, follows some simple commands, and also talks gibberish that is not pertinent to the situation. Pt transferred to wheelchair with gait belt. Pt did not attempt to bear weight or assist much. Belongings placed in bags and sent up to room 351 with patient. Report to 3W RN at 1930.
--- NOTE | 2019-12-20 22:26 | NUR ---
TRANSFER FROM ICU. PT RESTING IN BED, ALARM ON. PT TALKING TO HIMSELF, MUMBLED SPEECH, PT TALKING ABOUT SOMEONE GETTING HIM. PT ABLE TO STATE NAME, DIRECT YES AND NO QUESTIONS ARE ANSWERED. PT HAS POOR EYE CONTACT WHEN TALKING WITH STAFF. EDOUARD TO AIDEE. R PICC INTACT. COMPLIANT WITH ASSESSMENT AND MEDS.
--- NOTE | 2019-12-21 06:37 | NUR ---
PT YELLING OUT INTO MOSHER, RESTLESS IN BED, CALLING STAFF WHORES, TALKING TO SELF IF TALKING TO FRIEND LOUDLY, CURSING, TALKING ABOUT MUSIC AND DRINKING. PT NOT VERBALLY REDIRECTABLE PRN PROVIDED. PT AFTER MEDICATION, FELL ASLEEP SITTING UPRIGHT AND CONVERSATION WAS NOT YELLING, TOPICS REMAINED THE SAME.
[2019-12-21 07:54] VITALS: BP 119/66
[2019-12-21 11:20] VITALS: BP 140/96
[2019-12-21 19:38] VITALS: BP 127/90
--- NOTE | 2019-12-21 19:44 | NUR ---
PT ALERT AND ORIENTED TO SELF. AMBULATES IN ROOM WITH ASSIST X1 AND GAIT BELT. PICC INTACT IN SANDY. PT HAS BEEN CALM THROUGHOUT THE DAY. MORE COOPERATIVE WITH CARE WHEN S/O DPOA IS HERE. BED ALARM BREAD AND PASTRY BAKER LIGHT W/I REACH.
[2019-12-22 03:36] VITALS: BP 136/94
--- NOTE | 2019-12-22 03:49 | NUR ---
VSS-AFEBRILE. LUNGS CLEAR-ROOM AIR. CONFUSED BUT PLEASANT OVERNIGHT. ASYMPTOMATIC BRADYCARDIA. OCCASIONAL INCONTINENCE. FALL PRECAUTIONS IN PLACE.
[2019-12-22 07:36] VITALS: BP 133/87
--- NOTE | 2019-12-22 09:47 | NUR ---
REPORT GIVEN TO AGATA YOUNGBLOOD WHO WILL TAKE OVER PT CARE
[2019-12-22 11:20] VITALS: BP 136/98
--- NOTE | 2019-12-22 14:53 | NUR ---
ASSUMED CARE AT 0900 AM, SHIFT ASSESSMENT DONE, MEDS GIVEN, VSS. PT VERY SLEEPY, TIRED. SINUS GONZÁLEZ ON THE MONITOR. ROOM AIR. DENIES PAIN, ALERT TO SELF. INCONTINENT OF URINE. NO WOUNDS. WILL CONITINUE TO ASSESS AND ASSIST WITH ADLs NEEDED.
--- NOTE | 2019-12-22 15:00 | NUR ---
SW reviewed chart and spoke with nursing and attending physician. Pt was transferred to 3W from ICU and is slowly progressing towards goals for discharge. Pt has been refusing to work with therapy. 5N has been following for possible admission to inpt acute rehab if needed. Pt remains on IV abx. Awaiting input from ID on abx. [place]. SW is following to assist as needed with discharge planning.
[2019-12-22 16:20] VITALS: BP 141/102
[2019-12-22 19:18] VITALS: BP 124/91
[2019-12-23 03:46] VITALS: BP 121/96
--- NOTE | 2019-12-23 07:31 | NUR ---
ASSUMED CARE AT 1900. PT AWAKE BUT LETHARGIC, AND STARES AT STAFF INSTEAD OF ANSWERING QUESTIONS OR FOLLOWING DIRECTIONS. DENIES SOB, PAIN, OR NAUSEA. SLEPT SEVERAL HOURS, ONLY GAVE ONE DOSE OF RISPERIDOL. HR HAS BEEN IN 40'S MOST OF THE NIGHT. WOKE UP ABOUT 0400, TALKING EXCESSIVELY BUT NOT COHERNTLY. NO OTHER CONCERNS, SHIFT REPORT GIVEN AT 0700.
--- NOTE | 2019-12-23 08:37 | NUR ---
Pt is vitamin D deficient-recommend start supplementation.
[2019-12-23 08:46] VITALS: BP 132/97
--- NOTE | 2019-12-23 09:15 | NUR ---
ORDERS FOR P.T. EVAL AND TREAT. 3RD DAY OF ATTEMPTS TO EVALUATE WITHOUT SUCCESS Pt WILL NOT FOLLOW ANY COMMANDS FOR MOBILITY OR PARTICIPATE WITH P.T. Pt WILL ASK QUESTION UNRELATED TO TASK AT HAND AND UNABLE TO REDIRECT. WILL DISCONTINUE ATTEMPTS TO EVALUATE, THIS IS 3RD DAY IN A ROW, BUT WILL REATTEMPT IF MD REORDERS P.T. AND Pt IS ABLE TO PARTICIPATE WITH EVALUATION
[2019-12-23 10:58] LABS: ABSOLUTE NEUTROPHILS 2.2 thou/uL (1.4-8.2); BASOPHILS 0.3 % (0.0-2.0); EOSINOPHILS 1.3 % (0.0-3.0); HEMATOCRIT 32.3 % (42.0-52.0); HEMOGLOBIN 10.8 gm/dL (14.0-18.0); LYMPHOCYTES 17.8 % (24.0-44.0); MCH 30.4 pg (26.0-34.0); MCHC 33.4 g/dL (28.0-37.0); MONOCYTES 9.3 % (1.0-8.0); PLATELET COUNT 400 thou/uL (150-400); POLYS 71.3 % (36.0-66.0); RBC 3.55 mil/uL (4.50-6.00); RDW 12.9 % (10.5-14.5); WBC 3.1 thou/uL (4.0-11.0)
[2019-12-23 11:29] VITALS: BP 123/93
[2019-12-23 12:22] LABS: CALCIUM 10.6 mg/dL (8.5-10.1); CREATININE 0.8 mg/dL (0.7-1.3); POTASSIUM 4.5 mmol/L (3.5-5.1)
[2019-12-23 12:27] LABS: ALBUMIN 2.8 g/dL (3.4-5.0); TOTAL BILIRUBIN 0.2 mg/dL (<0.1-1.0); TOTAL PROTEIN 8.1 g/dL (6.4-8.2)
[2019-12-23 15:18] VITALS: BP 130/89
--- NOTE | 2019-12-23 15:42 | NUR ---
Assumed care approx. 0700 this AM. Pt drowsy and lethargic this morning into most of the afternoon. The nurse aide reported that he tried to get the patient's temp. several times oral and axillary with no result. The RN tried oral and axillary temps with no result. A rectal temperature was obtained with a result of 90.7 [address] F at 0938. Dr. Hughes was on the unit at that time. Dr. Hughes to assess the patient at bedside. STAT labs were drawn. A clare hugger was placed on the patient. A recheck temperature about 45 minutes later was 91.7 degrees F. The patients temp was rechecked after lunch time with a result of 97.8 degrees F. The clare hugger was removed after a temp noted to be 99.2 about an hour later. At this time, the patient was more awake, but still drowsy. The patient sat up to eat half a cup of pudding, but refused all other food and drinks. PO meds were held in the AM as the patient was too lethargic. Will try to crush pills this evening. Pharmacist aware that the patient needs pills crushed at this time. Will continue to monitor. Pt not progressing toward plan of care goals at this time.
--- NOTE | 2019-12-23 16:33 | NUR ---
SW reviewed chart and spoke with nursing and attending physician. Pt has refused working with therapy. 5N will not accept pt if he is not participating with therapy. Pt needs continued IV abx per ID. Pt may need outpatient IV infusion. Awaiting for input from ID. No weekend discharge planned. SW met with pt at bedside to provide update. SW is following to assist as needed with discharge planning.
[2019-12-23 20:37] VITALS: BP 124/90
--- NOTE | 2019-12-24 03:54 | NUR ---
ASSUMED CARE AT 1900. ATTEMPTED TO ASK PT MULTIPLE SIMPLE QUESTIONS SUCH HIS BIRTHDAY AND AGE, BUT HE WOULD ONLY REPEAT THE QUESTION BACK AND NOT ANSWER IT. NO S/S SOB BUT PT HAS CONGESTED COUGH HE STRUGGLES TO CLEAR; LUNGS ARE CLEAR SOUNDING. PERIODICALLY REPOSITIONING PT, BUT HE IS RESISTANT TO MOVING AND CALLS OUT MORE FREQ AFTER BEING SHIFTED. SEES MOVEMENT REFLECTED IN WINDOW AND CALLS OUT BUT DOES NOT REORIENT. HR GRADUALLY RETURNED TO SR IN 80-90'S FLUIDS INFUSED OVERNIGHT. NO OTHER CONCERNS, WILL CONTINUE TO MONITOR.
[2019-12-24 04:48] VITALS: BP 127/89
[2019-12-24 08:17] VITALS: BP 123/76
[2019-12-24 11:47] VITALS: BP 119/90
[2019-12-24 16:49] VITALS: BP 123/81
--- NOTE | 2019-12-24 18:27 | NUR ---
PT MARY ALMOST CONSTANTLY...UNABLE TO ORIENT TO ANYTHING BUT SELF...
[2019-12-24 19:30] VITALS: BP 126/88
[2019-12-25 04:51] VITALS: BP 134/95
--- NOTE | 2019-12-25 06:11 | NUR ---
ASSUMED CARE AT 1900. PT CALLING OUT CONSTANTLY FOR GIRLFRIEND AND SON; NOT REDIRECTABLE, DOES NOT REMEMBER HE IS IN THE HOSPITAL. GAVE DOSE OF RISPERIDOL AT 2100, PT FINALLY FELL ASLEEP ABOUT MIDNIGHT AND SLEPT UNTIL 0400. PULLED OFF EXTERNAL CATHETER, SOILED ENTIRE BED; PT COOPERATED SOMEWHAT WITH A BEDCHANGE, FOLLOWING SOME DIRECTIONS BUT BECAME INCREASINGLY BELLIGERENT, STATING "NO ONE IS TELLING ME ANYTHING" AND TALKING IN CIRCLES. NO TEMPS OVERNIGHT; HR STABLE IN 60-70'S SR. NO OTHER CONCERNS, WILL CONTINUE TO MONITOR.
--- NOTE | 2019-12-25 08:11 | NUR ---
0710 recieved report from Jinny YOUNGBLOOD on this patient he is sitting up in bed asking about the kids out in the [place]. He was informed that there was no children in the [place] then he asked about the neighbours outside.
[2019-12-25 08:59] VITALS: BP 124/79
--- NOTE | 2019-12-25 10:35 | NUR ---
0830 patient took his am medications crushed in applesauce it took some talking to get him to take them. He was fixated on chocolate cookies and just chocolate in general this am. He would only eat bites of his breakfast he kept insisting that he needed to "wait for the cookies". He is not able to be redirected at all. He just hollers out randomly often "hey" "hey".
[2019-12-25 11:50] VITALS: BP 121/92
--- NOTE | 2019-12-25 13:59 | NUR ---
Patient rested for a very short time after receiving the PO Risperidone this am. Other marino he was hollering out, or talking a string of nonsense arguing with everything he is being told. He is cooperative with cares inconsistantly he only ate bites for breakfast arguing about wanting cookies. For lunch he ate over half thinking I was his "Auntie" he argued with me the whole time but he ate I had to feed him he was so impulsive the cup of juice he would just dump out. About 30min ago his girlfriend Mallorie showed up she is in with the patient now.
[2019-12-25 15:32] VITALS: BP 126/88
--- NOTE | 2019-12-25 16:23 | NUR ---
Patient has been resting quietly every since his girlfriend Mallorie left he has not been hollering out just resting.
--- NOTE | 2019-12-25 18:15 | NUR ---
Patient woke up easily enough to take his po medications he said he is just tired. He did not sleep last night and was up talking all morning and hollering. So the sleep is much needed.
[2019-12-25 21:00] VITALS: BP 130/95
--- NOTE | 2019-12-25 22:43 | NUR ---
PT INITIALLY ASLEEP IN BED UPON ARRIVAL TO SHIFT. PT AWAKENED, PT TALKING TO PEOPLE IN ROOM NOT THERE, PT TALKING ABOUT PEOPLE HAVING GUNS AND HIM DRINKING WITH STAFF AT THE CLUB WE ARE IN. PT COMPLIANT WITH MEDS, PT DECLINED FLUIDS. EXT CATH INTACT. IVF INTACT. PT YELLING OUT LOUDLY TALKING TO HIMSELF, TALKING TO INDIVIDUALS NOT PRESENT, YELLING INTO HALLWAY, PT NOT ABLE TO BE VERBALLY REDIRECTED. PRN PO PROVIDED. PT CONTINUED TO YELL OUT INTO HALLWAY AND IN ROOM TALKING TO HIMSELF, PT YELLING AT STAFF TO COME OUT OF THE KITCHEN. PRN IV PROVIDED. PT STILL TALKING TO HIMSELF IN ROOM AND INTERACTING WITH HALLWAY STIMULUS BUT NO LONGER YELLING.
--- NOTE | 2019-12-26 01:41 | NUR ---
HR SB 50S, PT BP 144/99, HR 59. PT EASILY AROUSED TALKING WITH STAFF.
[2019-12-26 04:15] VITALS: BP 128/91
--- NOTE | 2019-12-26 05:00 | NUR ---
PT AWAKENED GETTING SELF OUT OF BED. CALLING STAFF AUNTIE. WANTING TO CALL FAMILY AND TALKING INTO REMOTE CONTROL. PT YELLING LOUDLY TO SELF IN ROOM AND STAFF IN MOSHER, NOT REDIRECTABLE. PRN RISPERDAL GIVEN.
[2019-12-26 07:36] VITALS: BP 137/92
--- NOTE | 2019-12-26 09:47 | NUR ---
Nutrition: Calorie count past 3 days showing pt meeting 15-30% of needs via oral intake. Supplements provided on modified diet. Occasionally consumes. Requires feeding due to confusion. Severe malnutrition present. RECOMMEND: change IVF to Clinimix PPN to meet 40-118% of needs til po improves Vitamin D 23.4-recommend order supplementation. Consider ST re-eval.
[2019-12-26 11:12] VITALS: BP 128/88
--- NOTE | 2019-12-26 14:51 | NUR ---
SW reviewed chart and spoke with nursing and attending physician. Pt to have a brain bx on Thursday per neurosurgery. JUDSON is following to assist as needed with discharge planning.
--- NOTE | 2019-12-26 17:09 | NUR ---
0700 received report from Steph YOUNGBLOOD patient hollering out at staff. 0830 He ate 40% of breakfast with much coaxing. He did better today as far as not hollering out as much. His speech is still nonsensical and he is not easily redirected but he was not yelling out or talking to people that are no there. He is basically talking to himself. 1200 He ate his cookies and magic cup again he had to be coaxed to do it. He talked to himself or to whoever would listen. 1700 girlfriend Mallorie here patient is asleep.
[2019-12-26 19:08] VITALS: BP 126/91
[2019-12-27 00:10] LABS: GLYCOHEMOGLOBIN (HGB A1C) 5.3 % (4.8-5.6)
--- NOTE | 2019-12-27 03:11 | NUR ---
VSS-AFEBRILE. RESTLESS AND CONFUSED OVERNIGHT DESPITE ADMINISTRATION OF HALDOL. EXTERNAL CATHETER REPLACED TO TO BEING PULLED OUT. DIFFICULT TO REORIENT. FALL PRECAUTIONS IN PLACE.
[2019-12-27 04:45] VITALS: BP 139/91
[2019-12-27 07:35] VITALS: BP 139/96
--- NOTE | 2019-12-27 07:37 | NUR ---
0700 report received from Diana YOUNGBLOOD the patient was sitting in bed had his room phone up to his ear like the controller to the TV listening to it. Mentation is the same as the previous days. He is oriented to self only.
--- NOTE | 2019-12-27 10:05 | NUR ---
Patient has been very noncomplaint today he pulled his picc line out, refused to take his medications has been getting out bed stating "you cant keep me here against my will I am leaving Mallorie and my Mom are out there". Haldol IV and Risperdol po have been given. Redirection, and reorientation have failed. He is still hollering out stating he needs to leave.
--- NOTE | 2019-12-27 15:11 | NUR ---
PATIENT RECEIVED OLANZAPINE LATE THIS MORNING PATIENT HAS BEEN RESTING QUIETLY SINCE HE IS AROUSABLE BUT GOES RIGHT BACK TO SLEEP. THIS AFTERNOON HE WAS INCONTINENT OF A VERY LARGE AMOUNT WHEN WE WENT TO CHANGE HIM HE WOKE UP AND BEGAN PULLING AT THE BLANKETS TELLING US "NO NO". GRABBING AT EVERYTHING HE CAN GET AHOLD OF. HE WENT BACK TO SLEEP AFTER HE WAS LEFT ALONE.
[2019-12-27 17:03] VITALS: BP 139/87
--- NOTE | 2019-12-27 17:44 | NUR ---
JUDSON reviewed chart and spoke with nursing and attending physician. Pt's DPOA, Lizzie, has declined the brain bx. Pt's mother had called and requesting update earlier today. Pt's mother is not listed on contact list. [facility] has evaluated pt for inpt acute rehab. Therapy ordered again to evaluate pt. JUDSON met with pt and DPOA at bedside. Lizzie states that pt's mother can have basic information only. Any additonal questions, will need to be referred back to Lizzie. JUDSON discussed discharge plan with Lizzie. Lizzie asked about status of pt's Medicaid application. Additional clinical info faxed to [employer] today. JUDSON contacted [employer] community engagement representative to request follow up with pt's s/o. JUDSON explained that pt needs to be willing and able to participate with therapy in order to qualify for 5N. Should pt not qualify. pt's s/o states that she would take pt home and try to find family to help with care. Lizzie's sister is a GRAB OPERATOR. Pt's s/o requests contact for ID physician. JUDSON provided office contact info for Dr. Baptiste. JUDSON updated pt's nurse. JUDSON is following to assist as needed with discharge planning.
[2019-12-27 19:22] VITALS: BP 142/94
[2019-12-28 04:01] VITALS: BP 140/91
--- NOTE | 2019-12-28 07:37 | NUR ---
ASSUMED CARE AT 1900. PT SOMNOLENT, AROUSEABLE BUT VERY DROWSY; NO S/S RESP DISTRESS, NAUSEA, OR PAIN. HELD HS RISPERIDOL. HAD TROUBLE GETTING TEMPS ON PT, OBTAINED RECTAL TEMP OF 93.9; PLACED ON BEAR HUGGER, GRADUAL IMPROVEMENT, AND BY 0200, AXILLARY TEMP WAS 97.9. PT SLEPT UNTIL ABOUT 0400 WHEN HE WOKE UP AND WAS VERY AGITATED AND ANXIOUS; PT KEPT SEEING THINGS ON TV AND WAS HALLUCINATING ABOUT "CHILDREN NOT BEING TAKEN CARE OF FOR HOURS" AND WANTING TO CALL THE POLICE, DID NOT REORIENT. GAVE PO RISPERIDOL AND BENDARYL; AFTER ABOUT AN HOUR, PT BECAME MORE CALM AND COOPERATIVE WITH CARES; AWAKE AND ANSWERING QUESTIONS/FOLLOWING COMMANDS BUT MENTATION STILL CONFUSED. NO OTHER CONCERNS, SHIFT REPORT GIVEN AT 0700.
[2019-12-28 08:06] VITALS: BP 142/97
[2019-12-28] MEDS ORDERED: RISPERDAL 1 MG T1 MG PO ×2 (13:11)
[2019-12-28] MEDS ORDERED: PEPCID20 MG PO (13:11)
[2019-12-28] MEDS ORDERED: VITAMIN B-1100 M2 PO (13:11)
[2019-12-28] MEDS ORDERED: BANOPHEN25 M1 PO (13:11)
[2019-12-28] MEDS ORDERED: MULTIVITAMINS1 EAC7 PO (13:11)
[2019-12-28] MEDS ORDERED: AZITHROMYCIN 6600 M1 PO (13:22)
[2019-12-28] MEDS ORDERED: BIKTARVY 50-201 EACH PO (13:22)
[2019-12-28] MEDS ORDERED: BACTRIM DS TAB1 EACH PO (13:22)
--- NOTE | 2019-12-28 15:09 | NUR ---
DISCHARGE PLANNING. DISCHARGE PLAN IS TO HOME WITH HOME HEALTH SERVICES. PATIENT REFERRAL FAXED TO [facility] FOR [facility]. CALL RECEIVED FROM [facility]. ERIC STATES [facility] IS ACCEPTING OF PATIENT AT DISCHARGE. DR CORTÉS TO FOLLOW PATIENT FOR VISITS. ERIC AWARE. ERIC TO FACILITATE ONCE DISCHARGE/HOME HEALTH ORDERS RECEIVED. UNIT SW AWARE.
[2019-12-28 15:18] LABS: T-SPOT.TB Negative
[2019-12-28 15:29] VITALS: BP 153/111
[2019-12-28 16:58] VITALS: BP 153/111
--- NOTE | 2019-12-28 17:46 | NUR ---
JUDSON reviewed chart and spoke with nursing and attending physician. Pt is progressing towards goals for discharge. Pt is not a candidate for 5[facility], as pt is not participating with therapy. [facility] is able to provide brook RN visits at time of discharge. Dr. Stallworth to follow for HH orders. JUDSON left voice message for pt's DPOA, Lizzie, to notify of discharge. JUDSON spoke with Keyla at [facility], who states that pt's Medicaid application is still in process. [facility] needs pay stubs from pt. JUDSON requested [facility] follow up with pt's DPOA. JUDSON met with pt and DPOA at bedside to discuss discharge plan. Update provided regarding HH services and need to fill medications. Scripts were sent electronically to [facility]. Pt's s/o states that pt does not use [facility], and unsure if they are able to afford the meds. Pt's s/o to make appt with pt's PCP at [facility]. JUDSON also discussed resources at [facility] and [facility] for follow up care. JUDSON discussed need to have meds filled at [facility]. JUDSON received approval from Director of Case Mgmt to vouch for meds. Discharge anticipated for tomorrow. New scripts printed and signed by attending physician. JUDSON took scripts to [facility]. One medication costs $4000. Will need administration approval per Director of Case Mgmt. JUDSON updated attending physician. JUDSON is following to assist as needed with discharge planning.
--- NOTE | 2019-12-28 18:18 | NUR ---
Assumed care approx. 0700 this AM. Patient awake and alert today, but still confused and impulsive. Pt eating and drinking at meal time. Pending discharge orders obtained. Pt will be discharged tomorrow as home medications and plans for patient to be properly taken care of at home will be complete. Pt DPOA at bedside to visit this afternoon, and speak with case management. Pt progressing toward goals.
[2019-12-28 20:32] VITALS: BP 141/95
[2019-12-29 04:48] VITALS: BP 132/91
--- NOTE | 2019-12-29 06:02 | NUR ---
ASSUMED CARE AT 1900, ASSESSMENT COMPLETED. PT INITIALLY CALLING OUT CONSTANTLY, VERY LOUD AND AGITATED, WORRIED ABOUT CHILDREN SOMEWHERE; GAVE HS MEDS INCLUDING BENDARYL WHICH HELPED SETTLE PT; PT THEN ALERT BUT DROWSY, FOLLOWED COMMANDS TO ROLL IN BED FOR A BED CHANGE. ONE TIME STATED HE NEEDED TO URINATE AND WAS ABLE TO USE URINAL WITH MINIMAL DIRECTION, OTHERWISE HAD LARGE AMOUNTS OF URINARY INCONT. SLEPT MOST OF NIGHT, WOKE UP THIS AM ABOUT 0500 AND STARTED TALKING TO HIMSELF. PLAN FOR D/C HOME TODAY, NO OTHER CONCERNS.
[2019-12-29 07:48] VITALS: BP 130/89
[2019-12-29 15:22] VITALS: BP 132/87
--- NOTE | 2019-12-29 16:20 | NUR ---
Assumed care approx. 0700 this AM. Pt alert and awake but confused and impulsive. Pt more cooperative when taking medication. Dr. Hughes wants a physical therapy eval on the patient. PT notified and said they signed off on the patient per policy due to several refusals and noncompliance. Physical therapy was reordered and Rosangela from PT said she will add the patient to the list to be seen for an eval tomorrow morning. Nursing has been liaisoning between doctors, pharmacist, and pt DPOA on discharge meds so that the meds can be crushed at home for safe consumption. No acute changes noted. Pt slowly progressing toward discharge goals.
--- NOTE | 2019-12-29 17:28 | NUR ---
JUDSON reviewed chart and spoke with nursing and attending physician. Recommendation made for pt to have 24 hour supervision at home or facility placement due to pt's level of care needs. Pt does not appear to meet criteria for inpt psych treatment. Pt needs to be compliant with medications upon discharge and have close follow up care. JUDSON received pt's recent pay stub. JUDSON provided this info to [facility] for follow up on Medicaid application. JUDSON spoke with pt's girlfriend/DPOA, Lizzie several times today to discuss discharge plan. JUDSON discussed options of possible cementer machine applicator care placement in a nursing facility. Lizzie states that she does not want pt to be placed in a nursing facility. Lizzie states she will be taking off several weeks from work to provide the 24 hour supervision. Pt has an appt at [facility] with Dr. Sidhu on 01/02 at 1100. JUDSON updated attending physician. Script and documentation provided to Lizzie for her employer stating she is willing to provide the 24 hour supervision to pt. JUDSON reviewed prescribed medications with Vika in [facility]. Awaiting final orders from OR, in order to place new order for meds. Total cost for meds provided--$3837.33. JUDSON discussed the adult day program at [facility]. JUDSON spoke with intake at [facility]. Pt's with no insurance are placed on a waiting list. Lizzie is agreeable with referral to [facility]. JUDSON received call from pt's mother, Julissa, to request an update. JUDSON received consent from Lizzie to speak with pt's mother regarding the discharge plan. Lizzie states that she will contact pt's mother as well later today. JUDSON spoke with Julissa via phone. Provided update regarding discharge plan. Pt's mother states she has contacted a legal team to discuss possible guardianship. Pt's mother states that she does not believe there is a DPOA document in place. Pt's mother requested contact info for the hospital, in order to assist with providing the documentation to her legal team. JUDSON explained that Director of Case Mgmt will follow up with her. JUDSON reviewed chart. Healthcare DPOA is on chart. Form was completed on 12/04/2019. Form is signed, witnessed and notarized. JUDSON discussed with Director of Case Mgmt. JUDSON updated pt's nurse. JUDSON is following to assist as needed with discharge planning.
[2019-12-29 19:27] VITALS: BP 125/79
[2019-12-30 03:45] VITALS: BP 124/91
--- NOTE | 2019-12-30 06:00 | NUR ---
PT MAKING POOR PROGRESS TOWARDS GOALS. PT ABLE TO ACCURATELY SAY HIS NAME BUT WAS UNAWARE OF THE DATE, TIME, LOCATION OR SITUATION HE IS IN. PT UNABLE TO RETAIN INFORMATION GIVEN TO HIM. FREQUENTLY CALLS OUT FOR 'CRYSTAL' AND WILL RAMBLE VERBALLY AT TIMES.
[2019-12-30 07:35] VITALS: BP 134/95
--- NOTE | 2019-12-30 10:20 | NUR ---
Spoke with mother and discussed discharge to home with Lizzie at home as she is going to be with him. Also informed the Mother that she does have the right to purse guardianship but with the Healthcare DPOA filed on the chart and reviewed to be current that the plan after speaking with the physician is to discharge to the care of the DPOA today. Mother asked where legal technician could get information that she will need to pursue guardianship; and instructed her to have her legal escrow representative work with HIM for any records. Mother still states she is concerned for her son and will be coming into [place] to see her son and pursue guardianship. Asked if her if she had further questions about today's discharge and she did not; but thanked me for my call by saying: "Well thank you for explaining all of this to me". Notified SW on case of the above conversation.
--- NOTE | 2019-12-30 15:08 | NUR ---
Nutrition update: Plan was to discharge today into 24 hr care of DPOA, now unsure of discharge. Pt not seen today, but chart reviewed. PO intake levels have improved drastically in the last few days. Pt now averaging nearly 2/3 of meals from 3/4 and 3/5 eating 50-100% of most meals. Has completed 100% of dinner the last 3 consecutive nights. Also per records, consuming 100% of 3 daily supplements. Was ordered on Ensure pudding w/ meals, but dislikes so was replaced with Magic Cup BID. 2/day provides 580 kcals, 18 g protein alone; and pt appears to be doing 3 supplements/day. No other supplement/interventions options at this time due to honey thick liquid needs and no further dysphagia diet advancements yet. Shall follow up again next week.
--- NOTE | 2019-12-30 15:28 | EKG ---
[facility] [place] [address] ELECTROCARDIOGRAM REPORT Name: EDITH YOUSSEF Room #: 351-P ADM IN M.R.#: [id number] Admission: 12/06/19 Attend Phys: Ramesh Bingham MD Discharge: Date of : 72 Report #: [id number] THIS REPORT FOR: cc: [facility] - Clinic physician unknown [facility] - Clinic physician unknown Venkata Torres MD ~ THIS REPORT FOR: //name// [facility] Test Date: 2019-12-14 Test Time: 19:48:40 Pat Name: EDITH YOUSSEF Department: Room: [facility] Gender: M Alternative Energy Engineer: Marilee GUERRA : 1970 Requested By: Loly Del Rosario Order Number: [id number] MD: Venkata Torres Measurements Intervals [place] Rate: 58 P: -88 OR: 197 QRS: 60 QRSD: 80 T: 81 QT: 442 QTc: 435 Interpretive Statements Sinus or ectopic atrial rhythm Nonspecific T abnormalities, lateral leads Compared to ECG 10/06/2019 15:33:45 Electronically Signed On 12-15-2019 8:17:23 TRANSFER OPERATOR by Venkata Torres [email or web address] <ELECTRONICALLY SIGNED> By: Venkata Torres MD 12/15/19816 47 47 Venkata Torres MD /EPI
[2019-12-30 16:03] VITALS: BP 112/85
--- NOTE | 2019-12-30 16:41 | NUR ---
JUDSON reviewed chart and spoke with nursing and attending physician. Pt did participate with therapy earlier today. JUDSON informed by Boby and Director of Case Mgmt that pt's Medicaid should be active within 24-48 hours. Additional clinical information regarding pt's dx has been submitted to [employer]. JUDSON spoke with pt's s/o/DPOA, Lizzie, via phone to provide update. JUDSON explained that with pt [place]-Med[place], this would open up opportunities for possible inpt acute rehab. Lizzie is agreeable with plan to consider inpt acute rehab. JUDSON explained that pt will need to continue to participate with therapy. JUDSON discussed with rehab physician. Therapy to see pt both days over the weekend. 5N will reassess on Thursday. Awaiting confirmation of pt's active Medicaid. Pt's s/o is also agreeable with referral to other inpt acute rehab facilities if needed. JUDSON updated Vika in the outpatient pharmacy. No weekend discharge planned. JUDSON updated attending physician, psych, ID physician, Director of Case Mgmt and 5N industrial rehabilitation consultant. JUDSON is following to assist as needed with discharge planning.
[2019-12-30 19:44] VITALS: BP 117/87
[2019-12-31 03:51] VITALS: BP 126/91
--- NOTE | 2019-12-31 05:42 | NUR ---
ASSUMED CARE OF PT @1900 PT ASSESSED AT START OF SHIFT ALERT TO SELF, UNKNOWN ABOUT LOCATION, TIME AND PLACE. TAKES PILLS WITH THICKENED LIQUIDS. PT INCONTINENT. ROOM INFRONT OF THE NURSES STATION FOR OBSERVATION. PT SLEPT GOOD TONIGHT. WOKE UP EARLY AND STARTS YELLING OUT "CRYSTAL" FALL PREC IN PLACE. WILL CONT TO MONITOR TILL EOS.
[2019-12-31 07:18] VITALS: BP 119/89
[2019-12-31 15:10] VITALS: BP 121/88
--- NOTE | 2019-12-31 19:25 | NUR ---
PATIENT PROGRESSING TOWARDS OUTCOME GOALS
[2019-12-31 20:50] VITALS: BP 130/86
--- NOTE | 2019-12-31 22:21 | NUR ---
1900 ASSUMED CARE OF PT AFTER BEDSIDE REPORT, PT RESTING IN BED NO S/SX OF DISTRESS, 2144 BASELINE ASSESSMENT COMPLETED, SEE ASSESSMENT PT ORIENTED TO SELF ONLY AND APPEARS CONFUSED MOST OF THE TIME, NS HUNG PER DR ORDER AFTER iv FLUSHED WITH NO DIFFICULTY, FALL PRECAUTIONS IN PLACE BED ALARM ON, PT REFUSES SCD'S AT THIS TIME, WILL CONTINUE TO MONITOR.
[2020-01-01 05:33] VITALS: BP 131/87
[2020-01-01 07:09] VITALS: BP 124/86
[2020-01-01 15:25] VITALS: BP 115/84
[2020-01-01 17:45] VITALS: BP 121/88
--- NOTE | 2020-01-01 18:05 | NUR ---
PT ARRIVED TO FLOOR FROM 3W AROUND 174 IN STABLE CONDITION.VSS. PT ALERT AND ORIENTED TO SELF ONLY.CALL LIGHT AND PERSONAL BELONGINGS WITHIN REACH.NO VERBAL C/O.PT IN BED RESTING AT PRESENT.WILL CONTINUE TO MONITOR.
--- NOTE | 2020-01-01 18:12 | NUR ---
ASSUMED PATIENT CARE AT 0700. ALERT TO SELF. CONFUSED TALK. VSS. NO DISDRESS NOTED. PATIENT TRANSFERED TO [facility] AT 1720. DPOA NOTIFIED.
[2020-01-01 19:42] VITALS: BP 138/91
--- NOTE | 2020-01-02 04:27 | NUR ---
ASSUMED PT CARE AROUND 1915. AXOX1. DOES NOT FOLLOW DIRECTIONS MAJORITY OF THE TIME. VSS. NO S/S ACUTE DISTRESS NOTED OR REPORTED AT THIS TIME. WILL CONT TO MOTNITOR FOR ANY CHANGES IN CONDITION.
[2020-01-02 07:45] VITALS: BP 110/81
[2020-01-02] MEDS ORDERED: TIVICAY50 MG PO (12:23)
[2020-01-02] MEDS ORDERED: VIREAD300 MG PO (12:23)
[2020-01-02] MEDS ORDERED: ACETAMINOPHEN325 M1 PO (12:23)
[2020-01-02] MEDS ORDERED: EMTRIVA200 MG PO (12:23)
--- NOTE | 2020-01-02 16:20 | NUR ---
DISCHARGE NOTE: JUDSON reviewed chart and spoke with attending physician. Pt was transferred to 4W from 3W over the weekend. JUDSON discussed case with 5N clinical rehabilitation coordinator, who states they are able to accept pt today. Discharge orders/summary finalized. JUDSON discussed with PONCE Landis, who states that pt's case is with the ID medical review board. Pt's Medicaid should be finalized soon. JUDSON spoke with pt's fiance/DPOA, Lizzie, via phone to provide update and discuss discharge plan. Lizzie is agreeable with plan to go to . Request to speak with [facility]. JUDSON contacted [facility] to request a phone call or visit to Lizzie. Lizzie states that she wiill work on getting pt's home care arranged once Medicaid is active. Rehab CM to follow and assist as needed with discharge planning.
[2020-01-02 17:15] VITALS: BP 115/79
--- NOTE | 2020-01-02 18:01 | NUR ---
Assumed pt care at 7am.Pt in bed resting and somtimes sleeping.Assessment completed.vss. Pt took all meds and meals without choking.Fiance called per pt request and updates given.Pt will be dc to rehab before the end of shift. Fimiguel angel at bs at present.Report off to 5n rn.
== END 2020-01-02 19:12 | DRG 974 ==
LOC: ER 18:17 → 3W 23:23 → EROBS 23:23 → 4S 23:23 → ICU 12-14 17:04 → 3W 12-20 21:27 → 4W 01-01 17:49
PROVIDERS: Emergency Medicine; Hospitalist; Internal Medicine; Internal Medicine Infectious Disease; Internal Medicine Pulmonary Disease; Nurse Practitioner Family; Psychiatry & Neurology Neurology; Radiology Vascular & Interventional Radiology; Specialist; ADMIT Internal Medicine
DX: B20 Human immunodeficiency virus [HIV] disease (principal); G04.90 Encephalitis and encephalomyelitis, unspecified; J96.01 Acute respiratory failure with hypoxia; J18.9 Pneumonia, unspecified organism; G92 Toxic encephalopathy; E43 Unspecified severe protein-calorie malnutrition; G37.9 Demyelinating disease of central nervous system, unspecified; J98.11 Atelectasis; E87.1 Hypo-osmolality and hyponatremia; J44.1 Chronic obstructive pulmonary disease with (acute) exacerbation; J44.0 Chronic obstructive pulmonary disease with (acute) lower respiratory infection; I10 Essential (primary) hypertension; M54.9 Dorsalgia, unspecified; F17.210 Nicotine dependence, cigarettes, uncomplicated; F32.9 Major depressive disorder, single episode, unspecified; E78.5 Hyperlipidemia, unspecified; M19.90 Unspecified osteoarthritis, unspecified site; F10.10 Alcohol abuse, uncomplicated; Y90.9 Presence of alcohol in blood, level not specified; F41.9 Anxiety disorder, unspecified; G89.4 Chronic pain syndrome; D64.9 Anemia, unspecified; E83.42 Hypomagnesemia; R13.10 Dysphagia, unspecified; R53.81 Other malaise; Z90.49 Acquired absence of other specified parts of digestive tract; Z79.899 Other long term (current) drug therapy; Z81.8 Family history of other mental and behavioral disorders; Z68.21 Body mass index [BMI] 21.0-21.9, adult; Z91.19 Patient's noncompliance with other medical treatment and regimen; Z28.21 Immunization not carried out because of patient refusal
CPT/HCPCS: 10040; 10045; 10078; 10080; 10195; 10879; 27000; 62110; 62900; 70005

== ENCOUNTER 2020-01-02 15:30 | Inpatient (IN) | payer OTHER ==
[~2020-01-02] VITALS: Ht 190.5 cm; Wt 80.4 kg
--- NOTE | ~2020-01-02 | PLAN ---
[facility] [place] [address] REHAB UNIT PLAN OF CARE Name: EDITH YOUSSEF Room #: 504-1 ADM IN M.R.#: [id number] Admission: 01/02/20 Attend Phys: Ezequiel Egan MD Discharge: Date of : 72 Report #: [id number] THIS REPORT FOR: //name// CC: Ezequiel Egan [facility] unknown DATE OF SERVICE: 01/04/2020 PROGRESS NOTE/OVERALL PLAN OF CARE SUBJECTIVE: The patient seen back today in followup. He is in no distress. Last recorded temperature 97.4, pulse 70, respirations 20, blood pressure 132/103. The hospitalist group is following regarding his medical issues including his blood pressure. He is cooperative this morning. He has been working in therapies with transfers, contact guard assistance. Gait min assist 35 feet without a device. In occupational therapy, lower body dressing is max assist, upper body is min assist. In speech therapy, he did undergo a video swallow study with recommendations for mechanical soft, with thin liquid via 10 mL Provale Cup. This is an improvement for him, although he continues to need supervision with this. He does have severe cognitive deficits. ASSESSMENT: 1. Encephalitis with encephalopathy. 2. 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 3. Dysphagia, now on thin liquids, but needs to use the Provale Cup. 4. Medical complex with generalized debilitation. 5. Left lower lobe pneumonia. 6. 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 7. Chronic alcohol abuse. 8. Chronic pain syndrome. 9. Moderate to severe protein-calorie malnutrition. PLAN: The overall plan of care is based on the preadmission screen, post-admission physician evaluation and information garnered from therapy assessments. 1. Estimated length of stay is probably at least 1-2 weeks. 2. Medical prognosis is reasonably good. 3. Anticipated interventions includes the interdisciplinary acute inpatient rehabilitation program. 4. Anticipated functional outcomes would be for the patient to become modified independent with transfers, mobility, ADLs, improvement as far as swallowing and improvement as far as cognition to hopefully achieve a point where he can return back to the home setting with his significant other. 5. Discharge destination would be back to the home setting with his significant other. 6. Expected therapy by discipline includes PT, OT and speech 1 hour per day [address] [address] REHAB UNIT PLAN OF CARE Name: EDITH YOUSSEF Room #: 504-1 ADM IN [facility].#: [id number] Admission: 01/02/20 Attend Phys: Ezequiel Egan MD Discharge: Date of : 72 Report #: [id number] each five days a week throughout the duration of the acute inpatient rehabilitation stay. By: [id number] Ezequiel Egan MD /PMT
--- NOTE | ~2020-01-02 | H ---
[facility] [place] [address] HISTORY AND PHYSICAL Name: EDITH YOUSSEF Room #: 504-1 ADM IN M.R.#: [id number] Admission: 01/02/20 Attend Phys: Ezequiel Egan MD Discharge: Date of : 72 Report #: [id number] THIS REPORT FOR: cc: [facility] - Clinic physician unknown [facility] - [facility] physician unknown Ezequiel Egan MD ~ CC: Ezequiel GAITAN unknown DATE OF SERVICE: 01/02/2020 HISTORY AND PHYSICAL AND POST-ADMISSION PHYSICIAN EVALUATION HISTORY OF PRESENT ILLNESS: The patient is a 49-year-old -[place] male who was originally admitted to [facility] to 12/06/2019 with acute encephalopathy. He had just left the [facility] against medical advice the same day. He was accompanied by his girlfriend. He was not advocating for himself properly or making good decisions. Psychiatry, Neurology, and ID services were consulted with the clinical suspicion for tertiary syphilis or other significant infectious causes of encephalitis being suspected. He was placed on empiric treatment and a lumbar puncture was obtained, but did not reveal any definitive diagnosis. The patient is HIV positive and underlying AIDS was also suspected. Progressive multifocal leukoencephalopathy was also suspected in the differential diagnosis as well as underlying pneumonia. He continued to receive broad-spectrum antimicrobial therapy. He made slow, but gradual improvement from a neurocognitive standpoint, but still has significant neurocognitive and physical deficits. The patient has now been admitted for acute in-hospital inpatient rehabilitation. This is the admission history and physical with date of service 01/02/2020. PAST MEDICAL HISTORY: As noted above. Prior chart review revealed positive syphilis and HIV antibodies; however, confirming testing had not resulted. MRI of the brain showed extensive demyelinating lesions. He had a lumbar puncture, which was done with the results noted in his history and physical. Again, he left [facility] AM. MEDICATIONS: Please see the full medication listing. ALLERGIES: No known drug allergies. HABITS: Tobacco half pack per day, occasional marijuana usage. SOCIAL HISTORY: Premorbidly living at home with his fiancee had not used an assistive device, was independent with ADLs, sharing IADLs. REVIEW OF SYSTEMS: No complaints of chest pain, shortness of breath or [facility] [address] [address] HISTORY AND PHYSICAL Name: EDITH YOUSSEF Room #: [facility] IN [facility]#: [id number] Admission: 01/02/20 Attend Phys: Ezequiel Egan MD Discharge: Date of : 72 Report #: [id number] abdominal discomfort. PHYSICAL EXAMINATION: GENERAL: A 49-year-old -Colombian male in no obvious distress. The patient was seen yesterday, 01/02/2020. VITAL SIGNS: Temperature was 98.1, pulse 82, respirations 20, and blood pressure 115/84. HEENT: Benign. He is a limited historian, will follow basic 1 step commands, latency to his responses. Jyzbqfdp-xu-tlacyu auditory comprehension is noted. Moderate verbal expression, severe memory. CHEST: Clear to auscultation. CARDIOVASCULAR: Regular rate and rhythm. ABDOMEN: Bowel sounds positive, nontender. GENITOURINARY AND RECTAL: Deferred. EXTREMITIES: Functional range of motion of the upper and lower extremities, strength is probably a grade 3+/5. DTRs are trace. He is needing significant assistance with functional mobility, transfers have been min assist. He has been up ambulating a short distance with min assist, handheld assist prior to admission. As far as his swallow, it has been mechanical soft honey thickened liquids. ASSESSMENT: A 49-year-old -[place]ian male with the following problem list: 1. Encephalitis/encephalopathy. 2. Human immunodeficiency virus/acquired immunodeficiency syndrome. 3. Dysphagia, on honey thickened liquid diet. 4. Medical complex with generalized debilitation. 5. Left lower lobe pneumonia. 6. 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 7. Chronic alcohol abuse. 8. Chronic pain syndrome. 9. Moderate to severe protein-calorie malnutrition. PLAN: The patient has been admitted for acute in-hospital inpatient rehabilitation. From a postadmission physician evaluation perspective, there are no relevant changes since the preadmission screening. Please see the above review of prior and current medical and functional conditions and comorbidities. Please see the patient's previous and current functional status. As far as risk of complications, the patient has multiple medical comorbidities as noted above. Initial plan of care involves the interdisciplinary acute inpatient rehabilitation program. Measurable functional goals would be for him to improve his overall functional independence, so that he can hopefully return back to the home setting with his significant other/durable power of united states attorney. Prognosis is reasonably good, although he is a complex case, we will need to have the multiple distributor sales consultant physicians continue to follow. Estimated length of stay is [facility] [address] [place] [address] HISTORY AND PHYSICAL Name: EDITH YOUSSEF Room #: 504-1 [facility] IN M.R.#: [id number] Admission: 01/02/20 Attend Phys: Ezequiel Egan MD Discharge: Date of : 72 Report #: [id number] probably at least 1-2 weeks. Potential barriers would include his multiple medical comorbidities and decreased functional status. By: [id number] Ezequiel Egan MD /nt
[~2020-01-02 15:30] MED LIST changes: +ACETAMINOPHEN325 M1 PO; +AZITHROMYCIN 6600 M1 PO; +BACTRIM DS TAB1 EACH PO; +BANOPHEN25 M1 PO; +BIKTARVY 50-201 EACH PO; +EMTRIVA200 MG PO; +MULTIVITAMINS1 EAC7 PO; +PEPCID20 MG PO; +RISPERDAL 1 MG T1 MG PO; +TIVICAY50 MG PO; +VIREAD300 MG PO; +VITAMIN B-1100 M2 PO
[2020-01-02 19:23] VITALS: BP 133/98
[2020-01-02 20:31] LABS: HEMOGLOBIN 13.6 gm/dL (14.0-18.0); MCH 30.3 pg (26.0-34.0); MCHC 33.3 g/dL (28.0-37.0); MCV 91.1 fL (80.0-100.0); RBC 4.5 mil/uL (4.50-6.00); RDW 13.3 % (10.5-14.5); WBC 6.6 thou/uL (4.0-11.0)
--- NOTE | 2020-01-03 02:30 | NUR ---
pt arrived to unit approx 1850 at change of shift. fiance with pt upon admission for short time then she left early. pt alert and oriented however wanted to go to sleep and fell asleep early. condom catheter in place with lin bag attached. pt denied complaints. pt awake now and watching tv. denies complaints. bed alarm on and call light in reach. will continue to monitor.
[2020-01-03 06:21] LABS: CALCIUM 9.8 mg/dL (8.5-10.1); POTASSIUM 3.9 mmol/L (3.5-5.1)
[2020-01-03 07:30] VITALS: BP 130/92
--- NOTE | 2020-01-03 10:50 | NUR ---
chart review. cm visited with sig other herberth while pt working with physical therapy . herberth has taken 3 weeks off from work, cm education that if he going to be her for therapy and she needs to work some then use 3 weeks her work is ok for when he gets dc from acute rehab. " yes going to hopeful his medicaid active soon and can get some community based services for him at home and sister going to help, i am panama hat blocker"/herberth. will cont following as needed for dc needs. education on team meeting, he was independent at home when feeling well.
--- NOTE | 2020-01-03 12:48 | NUR ---
ASSUMED CARE OF PT AT 0700. PT IS A&OX3, CONFUSED, IMPULSIVE AND HAS POOR INSIGHT. DENIES PAIN AND PARTICIPATED IN SCHEDULED THERAPIES. VITAL SIGNS ARE STABLE, HR REGULAR, LUNG SOUNDS DIMINISHED IN ALL LOBES, BOWEL SOUNDS ACTIVE IN ALL QUADRANTS. SIGNIFICANT OTHER EDUCATED ABOUT DIETARY RESTRICITIONS DUE TO ATTEMPTS TO PROVIDE PT WITH THIN LIQUIDS AND CANDY THAT IS NOT ON ORDERED DIETARY CONSISTANCY. PT IN ROOM NEAR NURSES STATION FOR SAFETY, FALL PRECAUTIONS IN PLACE, NURSING WILL CONTINUE TO MONITOR.
[2020-01-03 19:20] VITALS: BP 132/103
--- NOTE | 2020-01-04 02:14 | NUR ---
assumed care at approx 1900 evening 01/02. pt lying in bed with fiance at bedside. pt fell asleep soundly until approx midnight. pt incontinent of bowel and bladder requiring complete bed change. condom catheter applied and pt now back to sleep. pt started to yell out and po dose of Benadryl given with applesauce. bed alarm on and call light in reach. will continue to monitor.
[2020-01-04 07:45] VITALS: BP 127/79
--- NOTE | 2020-01-04 13:20 | NUR ---
jos notified by st that herberth here and needs form filled out. jos came and visited with esvin and herberth requested a letter be faxed to [facility] to a [facility] at [phone], faxed.
--- NOTE | 2020-01-04 15:43 | NUR ---
Assumed patient care at 0715. Vital signs have been stable. Patient is alert and oriented 1-2. He refused him am medications. He has been asking for cookies and candy throughout the day. Patient had a BM this am. He has been wearing briefs throughout the day, wears Condom Catheter at night. Chest X-Ray completed today; he continues to have a non-productive cough. He has tried to refuse Therapies today; girlfriend has been at bedside, convinced him to comply. Ordered and recieved new Aqua Heat Pad system for patient. Will continue to monitor and report to on-coming nurse.
[2020-01-04 19:38] VITALS: BP 130/86
--- NOTE | 2020-01-05 03:34 | NUR ---
Assessments completed. pt a&o to self. confused and forgetful. pt went t sleep after recieving his night time meds. no acute concerns overnight. pt denies pain. takes meds crushed in applesauce. v/s stabe. no s/s of distress. fall prec in place. will cont to monitor
[2020-01-05 09:10] VITALS: BP 117/89
--- NOTE | 2020-01-05 13:49 | NUR ---
ASSUMED CARES AT 0700. PT AWAKE, ORIENTED TO SELF ONLY. CONFUSED AND FORGETFUL. UNABLE TO DETERMINE PAIN DUE TO CONTRADICTING RESPONSES. VITALS REMAIN STABLE. PT REMAINS INCONTINENT OF BLADDER, PT AND BEDDINGS CHANGED NEEEDED. SUPERVISION PROVIDED WITH ALL MEALS, PILLS CRUSHED IN PUDDING. UP WITH 1 MIN ASSIST, GB AND WALKER AND TOLERATED WELL. DID NOT PARTICIPATE IN ALL THERAPIES, EASILY DISTRACTED. FREQ. VISUAL CHECKS. CALL LIGHT WITHIN REACH. FALL PRECAUTIONS IN PLACE
--- NOTE | 2020-01-05 14:00 | NUR ---
jos notified that herberth has question for social work, rn jos visited with pt and sig other herberth at bedside " brothers is on thu and need to get that care set up , i was told by other account manager trainee that some take pending medicaid?"/herberth. education that could call [employer] for assistance and no pd or community based program take medicaid pending. noted her tone of voice raise little. " i want my sister to be able to watch him, she probate clerk and if cant i have to quite my job or loose it, on thursday"/herberth. re discussed the letter for her to get 3 weeks off from work and that education already discussed to be working now while he is here and save the 3 weeks for after he is dc on . " would like you to check with social worker psychiatric, got to be company who takes pending?"/herberth.
[2020-01-05 19:10] VITALS: BP 115/74
--- NOTE | 2020-01-05 23:08 | NUR ---
1900 ASSUMED CARE OF PT AFTER BEDSIDE REPORT 1929 ASSESSMENT COMPLETED, SEE ASSESSMENT PT ALERT AND ORIENTED TO SELF ONLY, APPLESAUCE OFFERED FOR SNACK WITH MEDS, PT DRINKING FRON SIP CUP, FALL PRECAUTIONS IN PLACE, WILL CONTINUE WITH HOURLY ROUNDING. 2229 PT AGITATED AND WANTS TO LEAVE FLOOR, BUT DOESN'T KNOW WHERE HE WANTS TO GO, IS CALLING OUT TO NURSING TRYING TO GET STAFF TO GO TO THE PARKING LOT, MED GIVEN PER DEC FOR AGITATION
[2020-01-06 07:24] VITALS: BP 101/73
--- NOTE | 2020-01-06 09:14 | NUR ---
FAXED REFERRAL TO [facility] SPOKE WITH ERIC IN INTAKE AND THE RECEIVED REFERRAL AND CAN ACCEPT AT DC. DP TO FOLLOW.
[2020-01-06 09:15] VITALS: BP 101/73
[2020-01-06] MEDS ORDERED: PEPCID20 MG PO (10:31)
[2020-01-06] MEDS ORDERED: VITAMIN D325 MCG PO (10:31)
[2020-01-06] MEDS ORDERED: VITAMIN B-1100 M2 PO (10:31)
[2020-01-06] MEDS ORDERED: RISPERDAL 1 MG T1 MG PO (10:31)
--- NOTE | 2020-01-06 14:25 | NUR ---
ASSUMED CARES AT 0700. PT AWAKE, ORIENTED TO PERSON ONLY, CONFUSED. DENIES PAIN. VITALS REMAIN STABLE. PT REFUSED ALL THERAPIES TODAY, REQUIRED A LOT OF PROMPTS TO EAT HIS LUNCH. ASPIRATION PRECAUTIONS MAINTAINED. PT'S GIRLFRIEND HELPED HIM WITH HIS ADL'S THIS AM. PT REMAINS INCONTINENT OF BLADDER. UP WITH 1 MIN ASSIST AND FABIENNE FRANCOIS. VISUAL CHECKS, BED/CHAIR ALARM IN PLACE.
[2020-01-06 19:37] VITALS: BP 121/89
--- NOTE | 2020-01-07 03:20 | NUR ---
ASSUMED PT CARE AT 1900. PT DENIES PAIN. VSS. ASSESSMENT COMPLETED. INCONTINENT OF BB. CALLING OUT QUITE A BIT AT BEGINNING OF SHIFT, BUT WENT TO BED AFTER PM MEDS. SWALLOW PRECATIONS MAINTAINED. GF ASSISTED WITH SHOWER RIGHT BEFORE SHIFT CHANGE. WILL CONTINUE TO MONITOR.
--- NOTE | 2020-01-07 09:09 | NUR ---
ASSUMED CARE AT 0700. PATIENT IS ALERT TO PERSON ONLY. PATIENT IS CONFUSED. PATIENT ZUÑIGA'S, GUEST SERVICES LEAD ARE EQUAL. LUNGS ARE CLEAR. ABD IS SOFT WITH BSX4. ABD IS SOFT WITH BSX4. PATIENT IS INCONTINENT OF URINE. UP ON SIDE OF BED TO EAT BREAKFAST. PATIENT REFUSED OT AND ST TODAY. FALL AND SAFETY PROTOCOLS IN PLACE. DENIES PAIN AT THIS TIME. CONTINUES TO REFUSE THERAPIES. WILL CONTINUE TO MONITER.
[2020-01-07 19:43] VITALS: BP 108/75
--- NOTE | 2020-01-08 00:32 | NUR ---
PT ALERT AND ORIENTED X 1. IMPULSIVE. INCONT OF URINE IN LARGE AMTS. TAKES MEDS CRUSHED IN PUDDING WITHOUT DIFFICULTY. PT DENIES PAIN OR DISCOMFORT. BED ALARM ON FOR SAFETY. PT APPEARS TO BE SLEEPING ON HOURLY ROUNDS.
[2020-01-08 09:30] VITALS: BP 124/81
--- NOTE | 2020-01-08 13:51 | NUR ---
ASSUMED CARE OF PT AT 0710. PT IS A&O TO SELF. IS CONFUSED & FORGETFUL. IS ON ROOM AIR. DENIES PAIN. IS STABLE. FALL PRECAUTIONS & HOURLY ROUNDING CONTINUED THIS SHIFT. PT CAN BE IMPULSIVE AT TIMES. IS CLOSE TO NURSE STATION. LABS & VITALS REVIEWED. THIS NURSE CALLED THE PT'S GENARO CLINTON 3XS THIS AM FOR PATIENT. SHE IS NOW IN THE ROOM. THIS NURSE WAS DOING HOURLY ROUNDING WHEN SHE HAD THE PT AT THE SINK IN THE BATHROOM WASHING HIM UP. SHE STATED, "HE SMELLS LIKE PEE". THE NURSE APPOLOGIZED & REASSURED HER THAT THE CART ATTENDANT'S ASSISTED HIM & CLEANED HIM UP THIS AM BEFORE BREAKAST & THAT WE WOULD LIKE TO ASSIST THE PATIENT WITH HIS NEEDS. THIS NURSE & UNIT CART ATTENDANT ROUNDED ON PT WITHIN 40 MINUTES. MARY BETH STATED, "WHEN YA'LL CLEAN HIM UP CAN YA'LL PLEASE USE SOAP & WATER? I KNOW YA'LL DON'T CARE". THIS NURSE ENSURED HER THAT WE WERE & WOULD CONTINUE TO CARE FOR THE PT & THAT WE DO CARE ABOUT THE PT NEEDS & CONCERNS. THE PT IS INCONTINENT TO B&B. HE IS BEING OFFERED TO USE THE TOILET WITH ROUNDING. APPROPRIATE CARE IS BEING PROVIDED AT THIS TIME. WILL CONTINUE TO MONITOR. PT IS IN BED. CALL LIGHT WITHIN REACH.
[2020-01-08 19:25] VITALS: BP 105/75
--- NOTE | 2020-01-09 03:05 | NUR ---
ASSUMED CARE AT APPROX 1900 EVENING 01/07. PT AWAKE AT CHANGE OF SHIFT, CONFUSED, RESTLESS, AND SOMEWHAT IMPULSIVE. PT TRYING TO CLIMB OUT OF BED AND BECOMING SOMEWHAT AGITATED. PT GIVEN MEDS ORDERED WITH APPLESAUCE. PT WAS FITTED WITH CONDOM CATHETER AND APPEARS TO BE SLEEPING SOUNDLY AT PRESENT. BED ALARM ON AND CALL LIGHT IN REACH. WILL CONTINUE TO MONITOR.
[2020-01-09 08:00] VITALS: BP 100/69
--- NOTE | 2020-01-09 10:00 | NUR ---
sig other herberth had question about getting medication filled here for dc home. education that can send them where ever he gets him medication filled. " no other sw said they would be free"/herberth. education and have to get approval for 1 month no refills and he will need to set up with [facility] or [facility] to get medication refilled. noted sig other mumble under her breath "this is ridiculous"/herberth. cm received paperwork that herberth filled out of [employer] asked cm team to fax to [employer]. it was faxed and put in pt chart. sent request to cm used car sales supervisor to see if it is ok to vouch. will cont following as needed for dc needs.
--- NOTE | 2020-01-09 17:29 | NUR ---
ASSUMED CARES AT 0700. PT ORIENTED TO SELF ONLY, CONFUSED AND FORGETFUL. DENIES PAIN. VITALS REMAIN STABLE. UP WITH 1 MIN ASSIST, GB AND WALKER AND TOLERATED WELL. CONTINUES TO HAVE REDNESS ON HIS SACRAL AREA, ENCOURAGED TO REPOSITION Q2H. REMAINS INCONTINENT OF BLADDER, CLEANED AND CLOTHING CHANGED. FREQ. VISUAL CHECKS. CALL LIGHT WITHIN REACH. FALL PRECAUTIONS IN PLACE
[2020-01-09 19:10] VITALS: BP 116/80
--- NOTE | 2020-01-09 20:11 | NUR ---
[employer] FORMS WERE FAXED PER CM TO THEIR OFFICE FOR DISABILITY.
--- NOTE | 2020-01-09 23:42 | NUR ---
ASSUMED CARE OF PT AT 1900. PT IS A&O TO SELF. IS VERY CONFUSED & FORGETFUL. IS IMPULSIVE. DENIES PAIN. IS STABLE. IS INCONTINENT TO B&B. TOILETING PROVIDED WITH HOURLY ROUNDING. PT IS ACROSS FROM NURSING STATION. FALL PRECAUTIONS & FREQUENT CHECKS PROVIDED. PT IS STABLE. LABS & VITALS REVIEWED. WILL CONTINUE TO MONTIOR. CALL LIGHT WITHIN REACH.
[2020-01-10 08:30] VITALS: BP 116/76
[2020-01-10] MEDS ORDERED: BIKTARVY 50-201 EACH PO (09:23)
[2020-01-10] MEDS ORDERED: VITAMIN B-1100 M2 PO (09:23)
[2020-01-10] MEDS ORDERED: TIVICAY50 MG PO (09:23)
[2020-01-10] MEDS ORDERED: MULTIVITAMINS1 EAC7 PO (09:23)
[2020-01-10] MEDS ORDERED: ACETAMINOPHEN325 M1 PO (09:23)
[2020-01-10] MEDS ORDERED: SENNA-TIME S T1 EACH PO (09:23)
[2020-01-10] MEDS ORDERED: EMTRIVA200 MG PO (09:23)
[2020-01-10] MEDS ORDERED: VIREAD300 MG PO (09:23)
[2020-01-10] MEDS ORDERED: RISPERDAL 1 MG T1 MG PO (09:23)
[2020-01-10] MEDS ORDERED: VITAMIN D325 MCG PO (09:24)
--- NOTE | 2020-01-10 09:44 | NUR ---
pt to dc home today with vouched 1 x medication, no refills at [facility], vouched fww from provider [facility] . dr pond will follow for hh needs. cont with education on finding him primary dr to see ie [facility] or [facility]. [facility] to transport pt home. medicaid still pending.
[2020-01-10 10:14] VITALS: BP 101/73
--- NOTE | 2020-01-10 10:33 | NUR ---
ASSUMED CARE AT 0700. PATIENT IS ALERT AND ORIENTED X1 TO SELF ONLY. PATIENT ZUÑIGA'S, MAINTENANCE ANALYST ARE EQUAL. LUNGS ARE CLEAR AND DEMINISHED. ABD IS SOFT WITH BSX4. PATIENT INCONTINENT OF BOWEL AND BLADDER THIS A.M. PATIENT IS NOT ABLE TO FOCUS ON WHY HE IS HERE. PLAN IS FOR D/C LATER TODAY. UP IN THE CHAIR FOR MEALS WITH SUPERVISION. FALL AND SAFETY PROTOCOLS IN PLACE. THE GIRLFRIEND TO P/U PATIENT AFTER 10 AM. DENIES ANY PAIN AT THIS TIME. CONTINUES TO REFUSE ALL THERAPIES. WILL CONTINUE TO MONITER.
--- NOTE | 2020-01-10 13:12 | NUR ---
team meeting, recommendation: [facility] [place] [facility] [place]. per thermoforming operator ok to vouch for 1 week of medication for antiviral. need to check with thermoforming operator to see if we need to keep him until so he wont run out of antiviral medication before his [place] [facility]
--- NOTE | 2020-01-10 16:01 | NUR ---
DISCHARGE INSTRUCTIONS GIVEN TO PATIENT AND SIGNIFICANT OTHER. SIGNIFICANT OTHER VERBALIZED UNDERSTANDING OF D/C INSTRUCTIONS AND MEDS FROM PHARMACY SENT WITH PATIENT. PATIENT LEFT VIA W/C IN GOOD CONDITION.
--- NOTE | 2020-01-10 16:07 | NUR ---
[facility] FAXED DC ORDERS/SUMMARY SPOKE WITH JIMMY IN INTAKE SHE RECEIVED DC ORDERS AND WILL NOTIFY PT TIME OF VISITS. THEY ARE DOING A FEW WINNIE VISITS.
== END 2020-01-10 15:58 | disposition home health service (06) | DRG 974 ==
LOC: ENTRNSPT 01-10 15:48 → EDTRNSPTSTS 01-10 15:53
PROVIDERS: ADMIT Physical Medicine & Rehabilitation
DX: G93.40 Encephalopathy, unspecified (principal); E43 Unspecified severe protein-calorie malnutrition; B20 Human immunodeficiency virus [HIV] disease; J18.9 Pneumonia, unspecified organism; R13.10 Dysphagia, unspecified; R53.81 Other malaise; F10.10 Alcohol abuse, uncomplicated; G89.4 Chronic pain syndrome; Z68.22 Body mass index [BMI] 22.0-22.9, adult; I10 Essential (primary) hypertension; F41.9 Anxiety disorder, unspecified; F32.9 Major depressive disorder, single episode, unspecified; Z90.49 Acquired absence of other specified parts of digestive tract; F17.210 Nicotine dependence, cigarettes, uncomplicated; R26.9 Unspecified abnormalities of gait and mobility; D64.9 Anemia, unspecified; D72.819 Decreased white blood cell count, unspecified; R41.0 Disorientation, unspecified
CPT/HCPCS: 10112